=== PATIENT | female | born 1930 | race Caucasian/White ===

== ENCOUNTER 2016-09-30 17:08 | Inpatient (IN) | payer MEDICARE, OTHER ==
[~2016-09-30] VITALS: Ht 160 cm; Wt 71.0 kg
[~2016-09-30 17:08] MED LIST: AMLO5TAB4 PO; CLOP75TA19 PO; CYAN500T46 PO; DONE10TA7 PO; ERGO50007 PO; FERR325T31 PO; LEVO25TA50 PO; MEGE40TA17 PO; MEMA10TA16 PO; METO-429 PO; NEPH PO; OLAN5TAB5 PO; SIMV-39 PO; VALS160T20 PO
[2016-10-01 00:09] LABS: INR 1.14; PROTIME 14.6 Sec (12.2-14.2); PT RATIO 1.1
[2016-10-01 00:13] LABS: CALCIUM 8.9 mg/dl (8.4-10.2); CREATININE 1.33 mg/dl (0.44-1.00)
[2016-10-01 00:21] LABS: BASOPHIL # 0.1 10^3/ul (0.0-0.1); EOSINOPHILS # 0.1 10^3/ul (0.0-0.5); EOSINOPHILS % 1.2 % (0.0-7.0); LYMPHOCYTES # 1.8 10^3/ul (0.8-2.9); LYMPHOCYTES % 21.1 % (15.0-51.0); MEAN CORPUSCULAR HEMOGLOBIN 39.4 pg (29.0-33.0); MEAN CORPUSCULAR HGB CONC 33.6 g/dl (32.0-37.0); MEAN CORPUSCULAR VOLUME 117.2 fl (82.0-101.0); MEAN PLATELET VOLUME 8.2 fl (7.4-10.4); MONOCYTE # 0.7 10^3/ul (0.3-0.9); MONOCYTES % 8.2 % (0.0-11.0); NEUTROPHIL # 5.7 10^3/ul (1.6-7.5); NEUTROPHILS % 68.5 % (39.0-77.0); PLATELET COUNT 285 10^3/UL (140-440); RED BLOOD COUNT 1.79 10^6/ul (4.20-5.40); RED CELL DISTRIBUTION WIDTH 17.5 % (11.5-14.5); UNCORRECTED WBC 8.3 10^3/ul (4.8-10.8); WHITE BLOOD COUNT 8.3 10^3/ul (4.8-10.8)
[2016-10-01 00:22] LABS: CONDITION 1; LH ANALYZER COMMENTS 1
[2016-10-01 00:31] LABS: TROPONIN-I 0.45 ng/ml (0.00-0.12)
[2016-10-01] MEDS ORDERED: SOD CHLORIDE 0.9% 250 ML IV ONE (00:39)
[2016-10-01] MEDS ORDERED: FUROSEMIDE 40 MG INJ IV ONE (01:00)
--- NOTE | 2016-10-01 01:33 | RADRPT ---
PROCEDURE: Chest. CLINICAL INDICATION: Chest pain. TECHNIQUE: Single frontal view of the chest was obtained. COMPARISON: 11/05/2009. FINDINGS: Mediasternotomy wires are present. The cardiac silhouette is enlarged. The aortic arch is calcifie d. There is mild pulmonary venous congestion. There is a small left-sided pleural effusion with un derlying atelectasis/consolidation. There is mild right basilar atelectasis. There is no pneumotho rax. IMPRESSION: Mild cardiomegaly and pulmonary venous congestion. Small left-sided pleural effusion with underlying atelectasis/consolidation. Mild right basilar atelectasis. Aortic atherosclerosis. .Jonah Childers MD, Date Time Electronically viewed and signed by .Jonah Childers MD, MD on 10/01/2016 01:32 .T/
[2016-10-01] MEDS ORDERED: SOD CHLORIDE 0.9% 100 ML ONE (02:02)
[2016-10-01] MEDS ORDERED: IOHEXOL 300MG/ML 150 ML BTL ONE (02:02)
[2016-10-01] MEDS ORDERED: ASPIRIN 81 MG TAB PO ONE (03:00)
--- NOTE | 2016-10-01 03:15 | RADRPT ---
PROCEDURE: CT angiogram chest abdomen and pelvis. CLINICAL INDICATION: Chest and back pain TECHNIQUE: CT angiogram of the chest/abdomen/pelvis was performed utilizing axial images with will nstructions in sagittal and coronal planes after the uneventful intravenous administration of 100 cc Omnipaque 300 contrast. The administered radiation dose is CTDI 16 mGy, DLP 1084 mGy-cm. COMPARISON: No pertinent prior examinations are submitted for comparison. FINDINGS: Aortogram: Atherosclerotic calcifications are noted throughout the aorta and its branches. Some li near filling defect is seen along the distal aortic arch, possibly minimal thrombus or small focal d issection. This is seen on axial images 32 through 34 of series 3. Pulmonary angiogram: The pulmonary arteries are adequately opacified to the level of the segmental pulmonary artery branches. There is minimal respiratory motion artifact. There is no evidence of p ulmonary embolus. Chest: Moderate left and small right pleural effusions are seen with associated atelectasis. Some mucus pl ugging is noted within the lower lobes. There is moderate cardiomegaly. Coronary artery and cardiac valvular calcifications are noted. Abdomen: The liver, spleen, pancreas, kidneys and adrenal glands are unremarkable. Some density is noted with in the gallbladder, likely due to stones. There is no evidence of bowel obstruction. The appendix is normal. Increased stool is noted within the rectum. The rectum is mildly distended, measuring up to 7.8 cm in transverse dimension. There is no intra-abdominal adenopathy of free fluid. There is a moderate-sized hernia within the ventral abdominal wall in the upper abdomen. There is a moderate-sized, lobulated periumbilical hernia which contains fat. Pelvis: There is no evidence of pelvic adenopathy. The uterus and ovaries are without enlargement. The uri nary bladder is unremarkable. There is no pelvic free fluid. Osseous structures: Unremarkable. IMPRESSION: Possible small focal dissection or small thrombus within the distal aortic arch. Bilateral pleural effusions with associated atelectasis. Probable cholelithiasis. Increased stool within the rectum suggestive of constipation and / or fecal impaction. Ventral abdominal and periumbilical hernias containing fat. RPTAT: HIKT .Jesse Lugo MD, MD Date Time Electronically viewed and signed by .Jesse Lugo MD, on 10/01/2016 03:14 .T/
[2016-10-01] MEDS ORDERED: ONDANSETRON 4 MG INJ IV PRN (03:30)
[2016-10-01] MEDS ORDERED: ACETAMINOPHEN 325 MG TAB PO PRN ×2 (03:30→12:30)
[2016-10-01 03:38] VITALS: TEMP 98.1
[2016-10-01] MEDS ORDERED: LABETALOL HCL 20MG INJ IV ONE (05:30)
--- NOTE | 2016-10-01 05:33 | ERA ---
ER Documentation Chief Complaint Date/Time DATE: 10/01/16 TIME: 05:24 Chief Complaint Complains of chest pain and SOB Hx of CAD HPI This is an 85-year-old female presents to the emergency room with her family members for evaluation of chest pain, shortness of breath. The patient's symptoms have been present for approximately 3 days duration, and according to family members they stated they brought the patient in for evaluation although the patient did not want to come in originally. This patient did have a family member who was in the medical field and stated that she could have fluid on her lungs. According to family the patient does have a history of previous coronary artery disease, high blood pressure, dementia, and hyperlipidemia. A detailed history is unobtainable from the patient secondary to her cognitive deficits from her dementia ROS All systems reviewed and are negative except as per history of present illness. Medications Home Meds Reported Medications Olanzapine* (Zyprexa*) 5 Mg Tablet, 5 MG PO DAILY, #30 TAB 03/17/16 Megestrol Acetate* (Megestrol Acetate*) 40 Mg Tablet, 40 MG PO DAILY, TAB 03/17/16 Cyanocobalamin* (Vitamin B12*) 500 Mcg Tab, 500 MCG PO DAILY, TAB 03/17/16 Amlodipine Besylate* (Norvasc*) 5 Mg Tablet, 5 MG PO DAILY, TAB 03/17/16 Donepezil* (Donepezil*) 10 Mg Tablet, 10 MG PO DAILY, #30 TAB 03/17/16 Levothyroxine Sodium* (Levoxyl*) 25 Mcg Tablet, 25 MCG PO BEFORE BREAKFAST, #30 TAB 03/17/16 Metoprolol Tartrate* (Lopressor*) 50 Mg Tab, 50 MG PO DAILY, #60 TAB 03/17/16 Valsartan* (Diovan*) 160 Mg Tablet, 160 MG PO DAILY, TAB 03/17/16 Clopidogrel Bisulfate (Plavix) 75 Mg Tablet, 75 MG PO DAILY 04/16/11 Memantine* (Namenda*) 10 Mg Tablet, 10 MG PO BID 04/16/11 Multivit/Ca Carb/B Cmplx/Fa* (Ludivina-Carmelita*) 1 Tab Tab, 1 TAB PO DAILY 04/16/11 Simvastatin* (Simvastatin*) 80 Mg Tablet, 80 MG PO HS 04/16/11 Ferrous Sulfate (Ferosul) 325 Mg Tablet, 325 MG PO BID 04/16/11 Ergocalciferol (Vitamin D) 50,000 Unit Capsule, 34220 UNIT PO 1 TAB WEEK 04/16/11 Allergies Allergies: Coded Allergies: darbepoetin gomez (Verified Allergy, Unknown, RASH, SOB, 03/17/16) PMhx/Soc Anesthesia Reaction: No Hx Neurological Disorder: No Hx Respiratory Disorders: No Hx Cardiac Disorders: Yes (HTN) Hx Psychiatric Problems: No Hx Miscellaneous Medical Probl: No Hx Alcohol Use: No Hx Substance Use: No Hx Tobacco Use: No Smoking Status: Never smoker Physical Exam Vitals Vital Signs Date Time Temp Pulse Resp B/P Pulse Ox O2 Delivery O2 Flow Rate FiO2 10/01/16 04:16 92 18 167/75 100 Nasal Cannula 2.0 10/01/16 03:50 100 18 137/68 100 Nasal Cannula 2.0 10/01/16 03:38 98.1 94 18 121/73 98 Nasal Cannula 2.0 10/01/16 03:17 98.7 94 18 145/65 97 2.0 10/01/16 02:55 98.7 100 18 130/74 98 Nasal Cannula 2.0 10/01/16 01:24 150 18 123/83 97 Nasal Cannula 2.0 09/30/16 23:49 Nasal Cannula 09/30/16 17:34 99.4 91 20 141/62 97 Physical Exam INITIAL VITAL SIGNS: Reviewed by me GENERAL: The patient is well developed and appropriate for usual state of health in no apparent distress HEENT: Pupils equal, round, and reactive to light. EOMI. There is no scleral icterus. NECK: C-spine is soft and supple, there is no meningismus. There is no cervical lymphadenopathy. LUNGS: Coarse breath sounds bilaterally with rales auscultated in the bilateral lower lobes HEART: Regular rate and rhythm, no murmurs, clicks, rubs or gallops. ABDOMEN: Soft, non-tender, non-distended. There are bowel sounds in all four quadrants. No rebound or guarding. EXTREMITIES: There is no peripheral cyanosis or edema. No focal swelling or erythema. NEUROLOGICAL: The patient moves all four extremities with 5/5 strength. Cranial nerves II - XII are intact. Normal gait. Alert and oriented SKIN: There is no apparent rash or petechiae. HEME/LYMPHATIC: There is no evidence of excessive bruising or lymphedema. PSYCHIATRIC: The patient does not appear anxious or depressed. Result Diagram: 09/30/164 09/30/162333 Results 24 hrs Laboratory Tests Test 09/30/16 23:34 Activated Partial Thromboplast Time 29.0Sec Anion Gap 19 B-Type Natriuretic Peptide 8680PG/ML Basophils # 0.110^3/ul Basophils % 1.0% Blood Morphology Comment Blood Urea Nitrogen 26mg/dl Calcium Level 8.9mg/dl Carbon Dioxide Level 27mmol/L Chloride Level 108mmol/L Creatinine 1.33mg/dl Eosinophils # 0.110^3/ul Eosinophils % 1.2% Glucose Level 130mg/dl Hematocrit 21.0% Hemoglobin 7.0g/dl INR International Normalized Ratio 1.14 Lymphocytes # 1.810^3/ul Lymphocytes % 21.1% Mean Corpuscular Hemoglobin 39.4pg Mean Corpuscular Hemoglobin Concent 33.6g/dl Mean Corpuscular Volume 117.2fl Mean Platelet Volume 8.2fl Monocytes # 0.710^3/ul Monocytes % 8.2% Neutrophils # 5.710^3/ul Neutrophils % 68.5% Nucleated Red Blood Cells # 0.010^3/ul Nucleated Red Blood Cells % 0.0/100WBC Platelet Count 57386^3/UL Potassium Level 4.0mmol/L Prothrombin Time 14.6Sec Prothrombin Time Ratio 1.1 Red Blood Count 1.7910^6/ul Red Cell Distribution Width 17.5% Sodium Level 150mmol/L Troponin I 0.450ng/ml White Blood Count 8.310^3/ul Current Medications Medications (Trade) Dose Ordered Sig/Alexander Route PRN Reason Start Time Stop Time Status Last Admin Dose Admin Sodium Chloride (NS) 250 ml @ 0 mls/hr Q0M ONCE IV 10/01/16 00:39 10/01/16 00:41 DC 10/01/16 00:39 Furosemide 20 mg 20 mg ONCE ONCE IV 10/01/16 01:00 10/01/16 01:01 DC Sodium Chloride (NS) 100 ml @ ud STK-MED ONCE .ROUTE 10/01/16 02:02 10/01/16 02:03 DC 10/01/16 02:29 Iohexol (Omnipaque 300mg/ ml) 150 ml STK-MED ONCE .ROUTE 10/01/16 02:02 10/01/16 02:03 DC 10/01/16 02:29 Aspirin (Aspirin) 324 mg ONCE ONCE PO 10/01/16 03:00 10/01/16 03:01 DC 10/01/16 03:21 Ondansetron HCl (Zofran Inj) 4 mg ER BRIDGE PRN IV NAUSEA AND/OR VOMITING 10/01/16 03:30 10/02/16 03:29 Acetaminophen (Tylenol Tab) 650 mg ER BRIDGE PRN PO MILD PAIN/FEVER 10/01/16 03:30 10/02/16 03:29 Labetalol HCl (Labetalol) 10 mg ONCE ONCE IV 10/01/16 05:30 10/01/16 05:31 Procedures/MDM EKG: Rate/Rhythm: Bifascicular block QRS, ST, T-waves: [No changes consistent w/ acute ischemia] Impression: Bifascicular block EKG: #2 Rate/Rhythm: Sinus tachycardia QRS, ST, T-waves: [No changes consistent w/ acute ischemia] Impression: Sinus tachycardia Chest X-ray 1V Interpreted by me: Soft Tissue: No acute abnormalities Bones: No acute abnormalities Mediastinum/Cardiac Silhouette/Lungs: Pulmonary vascular congestion CTA chest abdomen pelvis: Possible small focal dissection or small thrombus within the distal aortic arch. Bilateral pleural effusions with associated atelectasis. Probable cholelithiasis. Increased stool within the rectum suggestive of constipation and / or fecal impaction. Ventral abdominal and periumbilical hernias containing fat. This 85-year-old female presents to the ER for evaluation of chest pain, shortness of breath, chest discomfort and chest congestion. When I evaluated this patient she did have coarse breath sounds. A cardiac workup was obtained which did reveal an elevated troponin. This patient was given aspirin when I was notified that the troponin was elevated. This patient did have a hemoglobin of 7, and I did think that the elevated troponin could possibly be due to a demand mismatch, and the patient was transfused 1 unit of packed red blood cells. As she was waiting for an admission to the telemetry floor she did increase her heart rate to 150 bpm. This was sustained for approximately 7 minutes. No signs of V. tach. At that time I made the decision to obtain a CT angiogram of the chest abdomen pelvis to rule out any vascular injury. His CTA of the chest does show a focal aortic dissection versus a distal aortic thrombus. I have contacted the radiologist in regards to this read to get a more clear diagnosis however he was unable to definitively distinguish thrombus versus dissection. This patient's heart rate did drop to 89 bpm after the episode of tachycardia. She once again had an increase in her heart rate and was given labetalol. I did contact her vascular surgeon data operations manager, Dr. Cornejo who recommended to obtain an MRA of the chest. An MRI of the chest with and without contrast is ordered, and the results are pending at this time. I have contacted this patient's admitting physician, Dr. Barros, and have updated him on this patient's clinical status. This patient will be upgraded to the intensive care unit at this time pending the MRA with contrast Critical Care: Excluding all billable procedures Time: 48 minutes Treatments/Evaluations: Close monitoring and treatment of unstable vital signs, cardiorespiratory, and neurologic status, while maintaining tight balance of fluid, respiratory, and cardiac interventions. Departure Diagnosis: Primary Impression: Aortic dissection Additional Impressions: Aortic thrombus Non-STEMI (non-ST elevated myocardial infarction) Anemia Renal insufficiency Condition: Stable CAITJALEN SANDERS Oct 01, 2016 05:33
[2016-10-01 07:00] LABS: CK-MB 1.94 ng/ml (0.0-2.4)
[2016-10-01 07:04] LABS: TROPONIN-I 0.392 ng/ml (0.00-0.12)
[2016-10-01] MEDS ORDERED: MEMA14CA PO (08:10)
[2016-10-01] MEDS ORDERED: HYDR-3012 PO (08:10)
--- NOTE | 2016-10-01 10:39 | RADRPT ---
PROCEDURE: MRA Chest without and with contrast. CLINICAL INDICATION: Aortic dissection, pain TECHNIQUE: MRA of the chest was performed. Patient was examined both before and following the unc omplicated intravenous injection of 10 cc of Magnevist IV contrast. Images were reviewed on a [employer] PACS workstation. COMPARISON: CTA, 10/01/2016 FINDINGS: Evaluation is somewhat limited by extensive artifact. No thoracic aortic aneurysm or evidence of ao rtic dissection is identified. Thoracic aortic atherosclerotic plaque is present. Visualized porti ons of the great vessels are patent without evidence of significant stenosis. There is mild cardiom egaly, without pericardial effusion. Moderate bilateral pleural effusions are noted. The patient i s status post sternotomy. No gross evidence of mediastinal, axillary or supraclavicular lymphadenop athy is identified. The visualized osseous structures are grossly unremarkable. IMPRESSION: 1. Limited evaluation secondary to extensive artifact. 2. No thoracic aortic aneurysm or evidence of aortic dissection is identified. Thoracic aortic ath erosclerotic plaque is present. 3. Mild cardiomegaly, without pericardial effusion. 4. Moderate bilateral pleural effusions. RPTAT: TT .Shoaib Tim MD, Date Time Electronically viewed and signed by .Shoaib Tim MD, on 10/01/2016 10:38 .R/
--- NOTE | 2016-10-01 12:18 | PN ---
Date/Time of Note Date/Time of Note DATE: 10/01/16 TIME: 12:09 Assessment/Plan VTE Prophylaxis VTE Prophylaxis Intervention: SCD's Lines/Catheters IV [facility] Saline Lock Exam/Review of Systems Vital Signs Vitals Vital Signs Date Time Temp Pulse Resp B/P Pulse Ox O2 Delivery O2 Flow Rate FiO2 10/01/16 09:20 78 18 125/72 100 10/01/16 08:05 Nasal Cannula 2.0 10/01/16 03:38 98.1 Intake and Output 09/30/16 09/30/16 10/01/16 15:00 23:00 07:00 Intake Total 700 ml Balance 700 ml Results Result Diagram: 09/30/16 2334 09/30/16 2334 Results 24 hrs Laboratory Tests Test 09/30/16 23:34 10/01/16 05:49 Activated Partial Thromboplast Time 29.0 Anion Gap 19 H B-Type Natriuretic Peptide 8680 H Basophils # 0.1 Basophils % 1.0 Blood Morphology Comment Blood Urea Nitrogen 26 H Calcium Level 8.9 Carbon Dioxide Level 27 Chloride Level 108 Creatinine 1.33 H Eosinophils # 0.1 Eosinophils % 1.2 Glucose Level 130 Hematocrit 21.0 L Hemoglobin 7.0 L INR International Normalized Ratio 1.14 Lymphocytes # 1.8 Lymphocytes % 21.1 Mean Corpuscular Hemoglobin 39.4 H Mean Corpuscular Hemoglobin Concent 33.6 Mean Corpuscular Volume 117.2 H Mean Platelet Volume 8.2 Monocytes # 0.7 Monocytes % 8.2 Neutrophils # 5.7 Neutrophils % 68.5 Nucleated Red Blood Cells # 0.0 Nucleated Red Blood Cells % 0.0 Platelet Count 285 # Potassium Level 4.0 Prothrombin Time 14.6 H Prothrombin Time Ratio 1.1 Red Blood Count 1.79 L Red Cell Distribution Width 17.5 #H Sodium Level 150 H Troponin I 0.450 *H 0.392 *H White Blood Count 8.3 Creatine Kinase 104 Creatine Kinase Index 1.9 Creatinine Kinase MB (Mass) 1.94 MARLENE BOWEN M.D. Oct 01, 2016 12:18 Ratio 1.14 Lymphocytes # 1.8 Lymphocytes % 21.1 Mean Corpuscular Hemoglobin 39.4 H Mean Corpuscular Hemoglobin Concent 33.6 Mean Corpuscular Volume 117.2 H Mean Platelet Volume 8.2 Monocytes # 0.7 Monocytes % 8.2 Neutrophils # 5.7 Neutrophils % 68.5 Nucleated Red Blood Cells # 0.0 Nucleated Red Blood Cells % 0.0 Platelet Count 285 # Potassium Level 4.0 Prothrombin Time 14.6 H Prothrombin Time Ratio 1.1 Red Blood Count 1.79 L Red Cell Distribution Width 17.5 #H Sodium Level 150 H Troponin I 0.450 *H 0.392 *H White Blood Count 8.3 Creatine Kinase 104 Creatine Kinase Index 1.9 Creatinine Kinase MB (Mass) 1.94 MARLENE BOWEN M.D. Oct 01, 2016 12:18
[2016-10-01] MEDS ORDERED: DOCUSATE SODIUM 100 MG CAP PO PRN (12:30)
[2016-10-01] MEDS ORDERED: ONDANSETRON 4 MG TAB PO PRN (12:30)
[2016-10-01] MEDS ORDERED: FUROSEMIDE 20 MG INJ IV ONE (12:30)
[2016-10-01] MEDS ORDERED: NACL 0.9% 3 ML SYG IV SCH (12:30)
[2016-10-01] MEDS: FAMOTIDINE 20 MG TAB PO SCH (12:33)
[2016-10-01] MEDS: NITROGLYCERIN 2% 1 GM OINT PKT TD SCH ×3 (12:33→23:13)
[2016-10-01 13:48] LABS: CK-MB 2.02 ng/ml (0.0-2.4)
--- NOTE | 2016-10-01 13:50 | HP ---
Date/Time of Note Date/Time of Note DATE: 10/01/16 TIME: 13:45 Assessment/Plan VTE Prophylaxis VTE Prophylaxis Intervention: SCD's Lines/Catheters IV Catheter Type (from Nrs): Saline Lock HPI/ROS Admit Date/Time Admit Date/Time Hx of Present Illness REGAL ACO HISTORY & PHYSICAL EXAM 1. 85-year-old woman with 3 days of chest congestion and orthopnea. Initial imaging suggested bilateral effusions, left greater than right. She has elevated BNP in the 8000 range, and chest exam was consistent with congestive heart failure. There is mild elevation of the first 2 troponin values, but no acute ischemic changes on EKG. Her troponin elevation may represented demand ischemia, but we will be following for the possibility of acute ischemic event. * Echocardiogram this morning * CT angiogram did not demonstrate perfusion problem, but there was concern initially about the possibility of a aortic arch dissection. MR angiography did not support this conclusion so far. * Topical Nitropaste, along with daily aspirin. Because of her moderate anemia , renal hold off on any anticoagulation. * Transfusion with 2 units of packed red blood cells. * Place under telemetry observation. 2. Hypothyroidism 3. Hypertension 4. Dementia Jozef Izaguirre MD PhD [phone] Subjective Subjective 24 Hr Interval Summary Free Text/Dictation Ms. Matthews is an 85-year-old patient of Dr. Sherron Garza with a history of previous coronary artery bypass surgery 20 years ago who has been feeling short of breath for the last few days. Her son-in-law is a distinguished fish hatchery inspector at [employer] (Braxton Vilchis MD), and his examination yesterday suggested some pulmonary vascular congestion with crackles at the left base of the lungs. She was unable to lie flat, and said that she had not been able to sleep for the last 3 days. She presented in the emergency room yesterday with chest discomfort iva to a pressured sensation in the mid-chest. She had a previous emergency room visit in February 2016 because of anemia, and was found to have a significant macrocytic anemia with an expectation of upper endoscopy follow-up that apparently has not taken place. Other medical history is significant for hypothyroidism, hypertension, dementia, and previous left total knee replacement surgery. Exam/Review of Systems Exam/Review of Systems Vital Signs Vitals Vital Signs Date Time Temp Pulse Resp B/P Pulse Ox O2 Delivery O2 Flow Rate FiO2 10/01/16 09:20 78 18 125/72 100 10/01/16 08:05 Nasal Cannula 2.0 10/01/16 03:38 98.1 Intake and Output 09/30/16 09/30/16 10/01/16 15:00 23:00 07:00 Intake Total 700 ml Balance 700 ml Exam On physical exam, she was alert and social. The HEENT exam indicated normal pupils with anicteric sclerae and no conjunctivitis. She had a regular rhythm with a 2/6 early systolic crescendo murmur that was best heard at the right upper sternal border. The peripheral perfusion was very good. Chest demonstrated some dullness at the bases, with decreased breath sounds at the left base and questionable crackles through the bases on both sides. Abdomen was soft and nontender, mildly to moderately tympanic, with no hepatosplenomegaly. Extremities were normal in appearance, with no lore arthritis, and puffiness but no significant peripheral edema. She had symmetric dorsalis pedis pulses bilaterally. Neurologic exam showed intact cranial nerves , motor and light touch sensation. The toes were downgoing. Orientation was difficult to assess given my limited acquaint her with Urdu. Results Result Diagram: 09/30/16 2334 09/30/16 2334 Results 24 hrs Laboratory Tests Test 09/30/16 23:34 10/01/16 05:49 Activated Partial Thromboplast Time 29.0 Anion Gap 19 H B-Type Natriuretic Peptide 8680 H Basophils # 0.1 Basophils % 1.0 Blood Morphology Comment Blood Urea Nitrogen 26 H Calcium Level 8.9 Carbon Dioxide Level 27 Chloride Level 108 Creatinine 1.33 H Eosinophils # 0.1 Eosinophils % 1.2 Glucose Level 130 Hematocrit 21.0 L Hemoglobin 7.0 L INR International Normalized Ratio 1.14 Lymphocytes # 1.8 Lymphocytes % 21.1 Mean Corpuscular Hemoglobin 39.4 H Mean Corpuscular Hemoglobin Concent 33.6 Mean Corpuscular Volume 117.2 H Mean Platelet Volume 8.2 Monocytes # 0.7 Monocytes % 8.2 Neutrophils # 5.7 Neutrophils % 68.5 Nucleated Red Blood Cells # 0.0 Nucleated Red Blood Cells % 0.0 Platelet Count 285 # Potassium Level 4.0 Prothrombin Time 14.6 H Prothrombin Time Ratio 1.1 Red Blood Count 1.79 L Red Cell Distribution Width 17.5 #H Sodium Level 150 H Troponin I 0.450 *H 0.392 *H White Blood Count 8.3 Creatine Kinase 104 Creatine Kinase Index 1.9 Creatinine Kinase MB (Mass) 1.94 PMH/Family/Social Social History Smoking Status: Never smoker Exam/Review of Systems Vital Signs Vitals Vital Signs Date Time Temp Pulse Resp B/P Pulse Ox O2 Delivery O2 Flow Rate FiO2 10/01/16 09:20 78 18 125/72 100 10/01/16 08:05 Nasal Cannula 2.0 10/01/16 03:38 98.1 Intake and Output 09/30/16 09/30/16 10/01/16 15:00 23:00 07:00 Intake Total 700 ml Balance 700 ml Labs Result Diagram: 09/30/16 2334 09/30/16 2334 Medications Medications Current Medications Nitroglycerin (Nitroglycerin 2% Oint) 0.5 inch Q6 TD Last administered on 10/01at 12:33; Admin Dose 0.5 INCH; Start 10/01/16 at 12:00 Ondansetron HCl (Zofran Tab) 4 mg Q6H PRN PO NAUSEA AND/OR VOMITING; Start at 12:30 Acetaminophen (Tylenol Tab) 650 mg Q6H PRN PO PAIN LEVEL 1-3 OR FEVER; Start 10/01/16 at 12:30 Docusate Sodium (Colace) 100 mg Q12H PRN PO CONSTIPATION; Start 10/01/16 at 12 :30 Famotidine (Pepcid) 20 mg DAILY PO Last administered on 10/01/16at 12:33; Admin Dose 20 MG; Start 10/01/16 at 12:30 MARLENE IZAGUIRRE M.D. Oct 01, 2016 13:50
[2016-10-01 13:52] LABS: TROPONIN-I 0.38 ng/ml (0.00-0.12)
[2016-10-01] MEDS ORDERED: LORAZEPAM 2 MG INJ IV ONE (16:30)
[2016-10-01] MEDS ORDERED: NITROGLYCERIN (SL) 0.4 MG TAB SL PRN (18:30)
[2016-10-01] MEDS ORDERED: METOPROLOL 5 MG INJ IV PRN (18:30)
--- NOTE | 2016-10-01 18:56 | RADRPT ---
Echocardiogram Report Patient Name: ISABEL METZGER Gender: Female Date: 1930 Study Date: 01-Oct-2016 Professional Development Instructor: Ricardo Virk [facility] Location: [facility] Ref. Physician: MARLENE BOWEN Quality: Good Procedures: Transthoracic echocardiogram with complete 2D, M-Mode, and doppler examination. Indications: Chest Pain. Congestive Heart Failure. 2D/M Mode Doppler Measurement Value Normal Ranges Measurement Value Normal Ranges LVIDd 2D 4.9 3.5 - 5.6 cm ARMAAN Vmax 0.8 cm2 LVIDs 2D 3.5 2.1 - 4.1 cm ARMAAN VTI 0.8 cm2 LVPWd 2D 1.0 0.6 - 1.1 cm AV Mean Hema 2.3 m/sec IVSd 2D 0.8 0.6 - 1.1 cm AV Mean PG 25.0 mmHg AoR Diam 2D 2.4 2.0 - 3.7 cm AV Peak Hema 3.3 m/sec EDV 2D 115.4 cm3 AV Peak PG 44.1 mmHg ESV 2D 44.7 cm3 AV VTI 73.7 cm LA Dimen 2D 4.3 2.3 - 4.0 cm LVOT Mean Hema 0.6 m/sec LVOT Diam 1.9 cm LVOT Mean PG 1.6 mmHg LVOT Peak Hema 0.9 m/sec LVOT Peak PG 3.0 mmHg LVOT VTI 19.8 cm MV E Peak Hema 1.2 m/sec MV A Peak Hema 1.3 m/sec MV E/A 0.9 MV PHT 44.4 msec MV Peak Hema 1.7 m/sec MV Peak PG 12.0 mmHg MV Mean Hema 1.1 m/sec MV Mean PG 6.1 mmHg MV Decel Time 230 msec MV Decel [place] 5 MV E/A 0.9 MV PHT 44.4 msec MV VTI 41.5 cm MVA PHT 5.0 cm2 TR Peak Hema 3.6 m/sec TR Peak PG 51.3 mmHg RVSP 54.0 mmHg Findings Left Ventricle: Normal left ventricular cavity size. Mild concentric left ventricular hypertrophy. Mild global left ventricular systolic dysfunction. Ejection fraction is visually estimated at 4045 %. Abnormal Diastolic Function. Right Ventricle: Normal right ventricular size. Left Atrium: There is mild enlargement of left atrium. LA Dimension4.30 cm. Right Atrium: There is mild enlargement of right atrium. Mitral Valve: Moderate mitral leaflet calcification. Moderate mitral annular calcification. Moderate mitral valve regurgitation. Mild to moderate mitral stenosis. Mitral valve Max Velocity 1.94 m/sec. MaxPG 15.00 mmHg. MeanPG 7.80 mmHg. Mitral Valve Area by PHT1.50 cm2. Aortic Valve: Moderate to severe aortic stenosis. Aortic valve Max velocity 3.32 m/sec. Max PG 44.00 mmHg. Mean PG 25.00 mmHg. Aortic valve area 0.80 cm2. Aortic cusps appear moderately calcified. Trace to mild aortic valve regurgitation. Tricuspid Valve: Normal appearance of the tricuspid valve. Estimated peak PA systolic pressure 54 mmHg. There is moderate tricuspid regurgitation. Pericardium: Normal pericardium with no significant pericardial effusion. Aorta: Normal aortic root. IVC: Normal size and normal respiratory collapse consistent with normal right atrial pressure. Conclusions 1.Normal left ventricular cavity size. Mild concentric left ventricular hypertrophy. Mild global left ventricular systolic dysfunction. Ejection fraction is visually estimated at 40-45 %. Abnormal Diastolic Function. 2.There is mild to moderate enlargement of left atrium. LA Dimension4.30 cm. 3.There is mild enlargement of right atrium. 4.Mild to moderate mitral stenosis. MeanPG 7.80 mmHg. Mitral Valve Area by PHT1.50 cm2. 5.Moderate to severe aortic stenosis. Mean PG 25.00 mmHg. Aortic valve area 0.80 cm2.Trace to mild aortic valve regurgitation. 6.Normal appearance of the tricuspid valve. Estimated peak PA systolic pressure 54 mmHg. There is moderate tricuspid regurgitation. Electronically Signed By: Prosper Mckeon 01-Oct-2016 18:55:59 -0800 Patient Name: ISABEL METZGER Study Date: 01-Oct-2016 [id number]
[2016-10-01 21:02] VITALS: BP 119/58; RESP 18
[2016-10-01 21:20] VITALS: Ht 160 cm; Wt 71.0 kg
[2016-10-01] MEDS: METOPROLOL 25 MG TAB PO SCH (23:12)
[2016-10-01] MEDS: LORAZEPAM 2 MG INJ IV PRN (23:14)
[2016-10-02] VITALS (12 sets, daily range): BP systolic 117–147; BP diastolic 52–80; PULSE 76–103; RESP 18–20
--- NOTE | 2016-10-02 05:16 | CONS ---
DATE OF ADMISSION: 10/01/2016 DATE OF CONSULTATION: 10/01/2016 CARDIOLOGY CONSULTATION REASON FOR CONSULTATION: Positive troponin, cardiac arrhythmia, possible congestive heart failure. REQUESTING PHYSICIAN: Julian Izaguirre M.D. HISTORY OF PRESENT ILLNESS: Ms. Matthews is an 85-year-old female with a history of coronary artery disease, status post coronary bypass grafting in 1995, hypertension, dementia, hypothyroidism, dysli pidemia who initially presented with shortness of breath, symptoms consistent with orthopnea and pos sible chest pain. Upon arrival in the emergency department, temperature was 99.4, blood pressure 14 , pulse documented at 91 and then shortly after that increased to 150s, saturating 97%. Patient 's labs were notable for a sodium of 150, potassium 4.0, creatinine of 1.33, BUN of 26. Troponin of 0.450. BNP of 8680. INR of 1.1. White blood cell count 8.3, hemoglobin 7, platelet count of 285 with an MCV of 117. The patient underwent a chest x-ray revealing mild cardiomegaly, pulmonary veno us congestion, small left-sided pleural effusion with underlying atelectasis, consolidation, mild ri ght basilar atelectasis. In addition, she then underwent a CT/CTA revealing possible small focal di ssection or small thrombus within the distal aortic arch, bilateral pleural effusion, associated ate lectasis, probable cholelithiasis, ventral abdominal and periumbilical hernias containing fat. The p atient then underwent a chest MRI revealing no thoracic aortic aneurysm of evidence of aortic dissec tion identified. Aortic atherosclerotic plaquing is present. Moderate bilateral pleural effusions. The patient's electrocardiogram initially revealed normal sinus rhythm at a rate of 93 with left a xis deviation, right bundle branch block, secondary repolarization abnormalities, and left anterior fascicular block. Patient then had a followup EKG later in the emergency stay revealing a wide comp corrina rhythm at a rate of 150 with the same right bundle branch block morphology, likely consistent wi th paroxysmal atrial flutter. The patient subsequently has been treated with Lasix 20 mg IV x1, lab etalol 10 mg IV x1, aspirin 325 mg, and now awaits admit to the floor. PAST MEDICAL HISTORY: As above in HPI. MEDICATIONS PRIOR TO ADMIT: 1. Megace. 2. Aricept 10 mg daily. 3. Plavix 75 mg daily. 4. Ferrous sulfate 325 mg p.o. b.i.d. 5. Norvasc 5 mg daily. 6. Lopressor 50 mg daily. 7. Simvastatin 80 mg at bedtime. 8. Diovan 160 mg daily. 9. Hydroxychloroquine. 10. Namenda 10 mg p.o. b.i.d. 11. Zyprexa. 12. Vitamin B12. 13. Vitamin D. 14. Ludivina-Carmelita. ALLERGIES: EPOGEN. SOCIAL HISTORY: No tobacco, ETOH or illicit drug use. FAMILY HISTORY: No history of sudden cardiac or early CAD. REVIEW OF SYSTEMS: As above in HPI. CONSTITUTIONAL: No fevers, chills. PULMONARY: Shortness of breath. CARDIOVASCULAR: Shortness of breath, possible chest pain. Congestive heart failure. GASTROINTESTINAL: No vomiting. GENITOURINARY: No hematuria. MUSCULOSKELETAL: Degenerative joint disease. PSYCHIATRIC: Possible anxiety. NEUROLOGIC: Dementia. PHYSICAL EXAMINATION: VITAL SIGNS: Temperature 98.1, blood pressure most recently of 121/73, pulse 94, respiratory rate 1 8, saturating 98% on 2 liters. GENERAL: The patient is sleeping but arousable. NECK: JVP approximately 9 to 10 cm water. CHEST: Bibasilar crackles. HEART: Regular rate and rhythm. Normal S1, S2, a I/ systolic murmur, nondisplaced PMI. ABDOMEN: Positive bowel sounds, soft. EXTREMITIES: Trace edema, 1+ pulses bilaterally, posterior tibial. LABORATORY DATA: As above in HPI with since admit, patient has been having troponins trending and s lowly trended down from a peak of 0.450 down to 0.380. ECG: As above in HPI. No further electrocardiograms for my review at this time. IMAGING STUDIES: As above in HPI. No further imaging studies for my review at this time. IMPRESSION: 1. Congestive heart failure exacerbation, question systolic versus diastolic by most recent echo in 2010, would have been diastolic ____. We will reassess, acute. 2. Positive troponin, assess significance in the setting of renal failure and tachyarrhythmia, poss ible demand event. Last ____stress here negative in 2010. 3. Wide complex tachycardia, likely could be consistent with SVT with baseline bundle branch block and given rate, most consistent with probable paroxysmal atrial flutter. 4. Hypertension. 5. Dyslipidemia. 6. Shortness of breath secondary to #1. 7. Renal failure. 8. Hypernatremia. 9. Anemia. RECOMMENDATIONS: 1. At this time, I would admit patient to telemetry monitoring to follow rhythm and rate control cl osely. 2. Would give patient gentle Lasix diuresis, following strict I's and O's to grade diuresis closely . 3. Will consider transfusion of packed RBCs to increase oxygen carrying capacity in the setting of positive troponins. 4. Resume the patient's baseline beta marian and patient's Norvasc at this time and we will hold o n the patient's Diovan in the setting of renal failure. 5. Resume the patient's baseline Plavix and will consider additional aspirin, following hemoglobin closely. 6. Check a 2D echo to reassess patient's ejection fraction, wall motion, and rule out any major smitha ve abnormalities. 7. Check a fasting lipid panel for general risk stratification and adjust the patient's statin ther apy as necessary and we will decrease the patient's baseline statin therapies on high doses at this time until the lipid panel returns. 8. We will additionally continue to check serial EKGs to assess for any significant ongoing changes and we will continue to trend the patient's cardiac enzymes to assess for any significant ongoing c ardiac damage with possible consideration for stress testing to assess significance of positive trop onins in setting of renal failure. Thank you for allowing me to take part in the care of this patient. I will continue to follow along very closely with you. Further recommendations will be made as the patient progresses through her inpatient hospital clinical course. Dictated By: PRISCILA SEGURA/MARILU Conf#: [id number] DID#: [id number] CC: ____ Dmitriy;*EndCC*
[2016-10-02] MEDS: NITROGLYCERIN 2% 1 GM OINT PKT TD SCH ×3 (05:39→17:50)
[2016-10-02 06:29] LABS: BASOPHILS % 0.6 % (0.0-2.0); EOSINOPHILS # 0.2 10^3/ul (0.0-0.5); EOSINOPHILS % 3.1 % (0.0-7.0); HEMATOCRIT 24.4 % (37.0-47.0); HEMOGLOBIN 8.4 g/dl (12.0-16.0); LYMPHOCYTES # 1.4 10^3/ul (0.8-2.9); LYMPHOCYTES % 18.9 % (15.0-51.0); MEAN CORPUSCULAR HEMOGLOBIN 38.2 pg (29.0-33.0); MEAN CORPUSCULAR HGB CONC 34.3 g/dl (32.0-37.0); MEAN CORPUSCULAR VOLUME 111.2 fl (82.0-101.0); MEAN PLATELET VOLUME 8.1 fl (7.4-10.4); MONOCYTE # 0.6 10^3/ul (0.3-0.9); MONOCYTES % 7.5 % (0.0-11.0); NEUTROPHIL # 5.4 10^3/ul (1.6-7.5); NEUTROPHILS % 69.9 % (39.0-77.0); PLATELET COUNT 263 10^3/UL (140-440); RED BLOOD COUNT 2.19 10^6/ul (4.20-5.40); RED CELL DISTRIBUTION WIDTH 23.9 % (11.5-14.5); UNCORRECTED WBC 7.7 10^3/ul (4.8-10.8); WHITE BLOOD COUNT 7.7 10^3/ul (4.8-10.8)
[2016-10-02 06:34] LABS: CONDITION 1; LH ANALYZER COMMENTS 1; POTASSIUM 4.4 mmol/L (3.5-5.1); SUSPECT 1
[2016-10-02 06:36] LABS: CREATININE 1.18 mg/dl (0.44-1.00)
[2016-10-02 06:37] LABS: CALCIUM 8.6 mg/dl (8.4-10.2)
[2016-10-02 06:49] LABS: CK-MB 1.06 ng/ml (0.0-2.4)
[2016-10-02 07:05] LABS: CHOL/HDL RATIO 3.2 RATIO
[2016-10-02 07:21] LABS: TROPONIN-I 0.303 ng/ml (0.00-0.12)
[2016-10-02] MEDS: METOPROLOL 25 MG TAB PO SCH ×2 (08:30→21:53)
[2016-10-02] MEDS: FAMOTIDINE 20 MG TAB PO SCH (08:30)
[2016-10-02] MEDS: ASPIRIN (EC) 81 MG TAB PO SCH (08:30)
--- NOTE | 2016-10-02 11:15 | CONS ---
Date/Time of Note Date/Time of Note DATE: 10/02/16 TIME: 11:08 Assessment/Plan Assessment/Plan Chief Complaint/Hosp Course IMPRESSION: 1. Congestive heart failure exacerbation, question systolic versus diastolic by most recent echo in 2010-EF 40-45%/mod-sev by echo this admit 2. Positive troponin, assess significance in the setting of renal failure and tachyarrhythmia, possible demand event. Last ____stress here negative in 2010. 3. Wide complex tachycardia, likely could be consistent with SVT with baseline bundle branch block and given rate, most consistent with probable paroxysmal atrial flutter. 4. Hypertension. 5. Dyslipidemia. 6. Shortness of breath secondary to #1. 7. Renal failure. 8. Hypernatremia. 9. Anemia. Recc: -Tele -serial ecg's -trend cardiac enzymes -Continue BB -Continue asa -Will hold on plavix at this time given anemia -Consider transfusion of PRBC's -add hydralazine afterload reduction in lieu of ACEI at this time given renal failure/insuff -Gentle lasix diuresis -Follow volume status closely Problems: Consultation Date/Type/Reason Admit Date/Time Oct 01, 2016 at 03:18 Initial Consult Date 10/02/2016 Type of Consultation: Cardiology Reason for Consultation CHF Referring Provider: MARLENE BOWEN M.D. Exam/Review of Systems Vital Signs Vitals Vital Signs Date Time Temp Pulse Resp B/P Pulse Ox O2 Delivery O2 Flow Rate FiO2 10/02/16 08:15 98.5 119 20 147/80 99 10/02/16 08:00 Nasal Cannula 3.0 Intake and Output 10/01/16 10/01/16 10/02/16 15:00 23:00 07:00 Intake Total 120 ml Output Total 300 ml Balance -180 ml Exam Review of Systems: CONSTITUTIONAL: No fevers, chills. PULMONARY: No sob CARDIOVASCULAR: No obvious chest pain/palpitations GASTROINTESTINAL: No nausea/vomiting. GENITOURINARY: No hematuria/dysuria. MUSCULOSKELETAL: No obvious myagias/arthalgias. PSYCHIATRIC: The patient denies depression. NEUROLOGIC: lethargic Constitutional: alert Psych: no complaints Head: normocephalic ENMT: mucosa pink and moist Neck: jvd (9-10 cm water), supple Respiratory: diminished breath sounds (at bases/B) Cardiovascular: regular rate and rhythm Gastrointestinal: non-tender, soft Musculoskeletal: muscle tone (normal) Extremities: pitting pedal edema (trace/B) Neurological: lethargic Results Result Diagram: 10/02/16 0550 10/02/16 0550 Results 24 hrs Laboratory Tests Test 10/01/16 13:10 10/02/16 05:50 Creatine Kinase 95 95 Creatine Kinase Index 2.1 1.1 Creatinine Kinase MB (Mass) 2.02 1.06 Thyroid Stimulating Hormone (TSH) 6.720 H Troponin I 0.380 *H 0.303 *H Anion Gap 16 Basophils # 0.0 Basophils % 0.6 Blood Morphology Comment Blood Urea Nitrogen 26 H Calcium Level 8.6 Carbon Dioxide Level 30 Chloride Level 109 Cholesterol Level 144 Cholesterol/HDL Ratio 3.2 Creatinine 1.18 H Eosinophils # 0.2 Eosinophils % 3.1 Glucose Level 99 HDL Cholesterol 44 Hematocrit 24.4 L Hemoglobin 8.4 L LDL Cholesterol, Calculated 79 Lymphocytes # 1.4 Lymphocytes % 18.9 Mean Corpuscular Hemoglobin 38.2 H Mean Corpuscular Hemoglobin Concent 34.3 Mean Corpuscular Volume 111.2 H Mean Platelet Volume 8.1 Monocytes # 0.6 Monocytes % 7.5 Neutrophils # 5.4 Neutrophils % 69.9 Nucleated Red Blood Cells # 0.0 Nucleated Red Blood Cells % 0.0 Platelet Count 263 Potassium Level 4.4 Red Blood Count 2.19 #L Red Cell Distribution Width 23.9 #H Sodium Level 151 H Triglycerides Level 107 White Blood Count 7.7 Medications Medications Current Medications Nitroglycerin (Nitroglycerin 2% Oint) 0.5 inch Q6 TD Last administered on 10/02at 05:39; Admin Dose 0.5 INCH; Start 10/01/16 at 12:00 Ondansetron HCl (Zofran Tab) 4 mg Q6H PRN PO NAUSEA AND/OR VOMITING; Start at 12:30 Acetaminophen (Tylenol Tab) 650 mg Q6H PRN PO PAIN LEVEL 1-3 OR FEVER; Start 10/01/16 at 12:30 Docusate Sodium (Colace) 100 mg Q12H PRN PO CONSTIPATION; Start 10/01/16 at 12 :30 Famotidine (Pepcid) 20 mg DAILY PO Last administered on 10/02/16at 08:30; Admin Dose 20 MG; Start 10/01/16 at 12:30 Aspirin (Halfprin) 81 mg DAILY PO Last administered on 10/02/16 08:30; Admin Dose 81 MG; Start 10/02/16 at 09:00 Metoprolol Tartrate (Lopressor) 25 mg BID PO Last administered on 10/02/16 08 :30; Admin Dose 25 MG; Start 10/01/16 at 21:00 Metoprolol Tartrate (Lopressor) 5 mg Q4 PRN IV HR>110 Hold SBP<100; Start at 18:30 Nitroglycerin (Nitroglycerin (Sl Tab) 0.4 Mg) 1 tab Q5M PRN SL ANGINA; Start 10/01/16 at 18:30 Lorazepam (Ativan) 0.5 mg Q8H PRN IV AGITATION/ANXIETY Last administered on at 23:14; Admin Dose 0.5 MG; Start 10/01/16 at 23:00 PRISCILA THORNTON Oct 02, 2016 11:15
--- NOTE | 2016-10-02 12:36 | RADRPT ---
Vent Rate: 85 bpm RR Interval: 0 msec MA Interval: 144 msec QRS Duration: 112 msec QT Interval: 400 msec QTC Interval: 476 msec P-R-T [place]: 0 - -57 - 124 degrees Sinus rhythm with blocked premature atrial complexes Left axis deviation Nonspecific ST and T wave abnormality Prolonged QT Abnormal ECG Electronically Signed By: Prosper Mckeon [id number]
[2016-10-02] MEDS: LORAZEPAM 2 MG INJ IV PRN (14:44)
[2016-10-02] MEDS ORDERED: LORAZEPAM 2 MG INJ IV ONE ×2 (17:30→21:30)
--- NOTE | 2016-10-02 18:04 | CONS ---
DATE OF ADMISSION: 10/01/2016 DATE OF CONSULTATION: REASON FOR CONSULTATION: Possible aortic dissection. HISTORY OF PRESENT ILLNESS: This is an 85-year-old male who was admitted because of chest pain, con gestion, orthopnea. Initial imaging showed bilateral pleural effusion, either a thrombus or a possi ble aortic dissection at the arch, which showed up on the CT angiogram of the chest. This was seen at the distal arch. This was followed up with an MRA, which showed no evidence of any thoracic aneu rysm or dissection; however, the patient had atherosclerotic plaque disease. The patient is now loreto ng treated for congestive heart failure. The patient also has a history of aortic stenosis wi th ejection fraction of 45%, [id number] mitral regurgitation, jsrplryc-ab-lwrbtv aortic regurg itation, with a mean gradient of 25 mmHg. Valve area of 0.8 cm2. PAST MEDICAL HISTORY: Significant for hypertension, hyperlipidemia, hypothyroidism. MEDICATIONS Include: 1. Megace. 2. Amlodipine. 3. Levothyroxine. 4. Metoprolol. 5. Plavix. 6. Multivitamin. 7. Simvastatin. PHYSICAL EXAMINATION VITAL SIGNS: Blood pressure is 147/80, pulse is 119, respiration is 20, saturations is 99% on 3 L o f oxygen, temperature is 98.5. HEENT: Normocephalic, atraumatic. PERRLA. NECK: Supple. No JVD. No carotid bruits. CARDIOVASCULAR: Normal S1, S2, with systolic murmur. LUNGS: Diminished breath sounds at the bases. ABDOMEN: Soft. EXTREMITIES: Warm. LABORATORY VALUES: Hemoglobin 8.4, white count 7.7, platelet count 263. INR 1.14 and a creatinine of 1.18. IMPRESSION 1. Congestive heart failure. 2. Aortic stenosis. RECOMMENDATIONS: We will continue treatment for stated CHF. We will discuss with the referring trevor bonilla. Dictated By: WINDY MAGUIRE/MARILU Conf#: [id number] DID#: [id number]
[2016-10-02] MEDS: OLANZAPINE 5 MG TAB PO SCH (21:53)
[2016-10-03] VITALS (13 sets, daily range): BP systolic 83–127; BP diastolic 41–76; PULSE 73–150; RESP 16–20
[2016-10-03] MEDS: NITROGLYCERIN 2% 1 GM OINT PKT TD SCH ×4 (00:55→17:26)
[2016-10-03 06:49] LABS: BASOPHIL # 0.1 10^3/ul (0.0-0.1); EOSINOPHILS # 0.3 10^3/ul (0.0-0.5); EOSINOPHILS % 3.4 % (0.0-7.0); HEMATOCRIT 25.9 % (37.0-47.0); HEMOGLOBIN 8.7 g/dl (12.0-16.0); LYMPHOCYTES # 1.9 10^3/ul (0.8-2.9); LYMPHOCYTES % 24.7 % (15.0-51.0); MEAN CORPUSCULAR HEMOGLOBIN 37.7 pg (29.0-33.0); MEAN CORPUSCULAR HGB CONC 33.8 g/dl (32.0-37.0); MEAN CORPUSCULAR VOLUME 111.5 fl (82.0-101.0); MEAN PLATELET VOLUME 8.1 fl (7.4-10.4); MONOCYTE # 0.7 10^3/ul (0.3-0.9); MONOCYTES % 8.8 % (0.0-11.0); NEUTROPHIL # 4.7 10^3/ul (1.6-7.5); NEUTROPHILS % 62.1 % (39.0-77.0); PLATELET COUNT 246 10^3/UL (140-440); RED BLOOD COUNT 2.32 10^6/ul (4.20-5.40); RED CELL DISTRIBUTION WIDTH 22.5 % (11.5-14.5); UNCORRECTED WBC 7.6 10^3/ul (4.8-10.8); WHITE BLOOD COUNT 7.6 10^3/ul (4.8-10.8)
[2016-10-03 07:07] LABS: CONDITION 1; LH ANALYZER COMMENTS 1
[2016-10-03 07:09] LABS: POTASSIUM 4.3 mmol/L (3.5-5.1)
[2016-10-03 07:11] LABS: CREATININE 1.2 mg/dl (0.44-1.00)
[2016-10-03 07:12] LABS: CALCIUM 8.8 mg/dl (8.4-10.2)
[2016-10-03] MEDS: FAMOTIDINE 20 MG TAB PO SCH (08:38)
[2016-10-03] MEDS: ASPIRIN (EC) 81 MG TAB PO SCH (08:39)
[2016-10-03] MEDS: METOPROLOL 25 MG TAB PO SCH ×2 (08:39→22:10)
[2016-10-03] MEDS: FUROSEMIDE 20 MG INJ IV SCH (08:39)
[2016-10-03] MEDS: OLANZAPINE 5 MG TAB PO SCH ×2 (08:39→22:09)
[2016-10-03] MEDS ORDERED: MEMANTINE 10 MG TAB PO SCH (09:00)
[2016-10-03] MEDS: LORAZEPAM 2 MG INJ IV PRN (11:48)
--- NOTE | 2016-10-03 12:13 | CONS ---
Date/Time of Note Date/Time of Note DATE: 10/03/16 TIME: 12:09 Assessment/Plan Assessment/Plan Chief Complaint/Hosp Course IMPRESSION: 1. Congestive heart failure exacerbation, question systolic versus diastolic by most recent echo in 2010-EF 40-45%/mod-sev by echo this admit-improving volume status 2. Positive troponin, assess significance in the setting of renal failure and tachyarrhythmia, possible demand event. Last stress here negative in 2010.lexiscan 3. Wide complex tachycardia, likely could be consistent with SVT with baseline bundle branch block and given rate, most consistent with probable paroxysmal atrial flutter.-had again overnight 4. Hypertension. 5. Dyslipidemia. 6. Shortness of breath secondary to #1. 7. Renal failure. 8. Hypernatremia. 9. Anemia. Recc: -Tele -serial ecg's -trend cardiac enzymes -Continue BB -Continue asa -start PO amio in attempt to maintain SR as PAFL may have been etiology of demand cardiac event/nstemi -Will hold on plavix at this time given anemia -Consider transfusion of PRBC's -Continue hydralazine afterload reduction in lieu of ACEI at this time given renal failure/insuff -Gentle lasix diuresis -Follow volume status closely -Follow MS closely -Consider am lexiscan to assess signifuicance of positive tropnins Problems: Consultation Date/Type/Reason Admit Date/Time Oct 01, 2016 at 03:18 Initial Consult Date 10/02/2016 Type of Consultation: Cardiology Reason for Consultation Nstemi/CHF Referring Provider: MARLENE BOWEN M.D. Exam/Review of Systems Vital Signs Vitals Vital Signs Date Time Temp Pulse Resp B/P Pulse Ox O2 Delivery O2 Flow Rate FiO2 10/03/16 11:19 97.6 84 20 122/60 97 10/03/16 08:00 Nasal Cannula 3.0 Intake and Output 10/02/16 10/02/16 10/03/16 15:00 23:00 07:00 Intake Total 310 ml Output Total 300 ml Balance 10 ml Exam >Review of Systems: CONSTITUTIONAL: No fevers, chills. PULMONARY: No sob CARDIOVASCULAR: No chest pain/palpitations GASTROINTESTINAL: No nausea/vomiting. GENITOURINARY: No hematuria/dysuria. MUSCULOSKELETAL: No myagias/arthalgias. PSYCHIATRIC: The patient denies depression. NEUROLOGIC: confusion Constitutional: alert Psych: confusion Head: normocephalic ENMT: mucosa pink and moist Neck: jvd (9 cm water), supple Respiratory: diminished breath sounds (at bases/B) Cardiovascular: regular rate and rhythm Gastrointestinal: non-tender, soft Musculoskeletal: muscle tone (normal) Extremities: edema (none) Neurological: confused Results Result Diagram: 10/03/16 0609 10/03/16 0600 Results 24 hrs Laboratory Tests Test 10/03/16 06:00 10/03/16 06:09 Anion Gap 16 Blood Urea Nitrogen 30 H Calcium Level 8.8 Carbon Dioxide Level 29 Chloride Level 109 Creatinine 1.20 H Glucose Level 110 Potassium Level 4.3 Sodium Level 150 H Basophils # 0.1 Basophils % 1.0 Blood Morphology Comment Eosinophils # 0.3 Eosinophils % 3.4 Hematocrit 25.9 L Hemoglobin 8.7 L Lymphocytes # 1.9 Lymphocytes % 24.7 Mean Corpuscular Hemoglobin 37.7 H Mean Corpuscular Hemoglobin Concent 33.8 Mean Corpuscular Volume 111.5 H Mean Platelet Volume 8.1 Monocytes # 0.7 Monocytes % 8.8 Neutrophils # 4.7 Neutrophils % 62.1 Nucleated Red Blood Cells # 0.0 Nucleated Red Blood Cells % 0.0 Platelet Count 246 Red Blood Count 2.32 L Red Cell Distribution Width 22.5 H White Blood Count 7.6 Medications Medications Current Medications Nitroglycerin (Nitroglycerin 2% Oint) 0.5 inch Q6 TD Last administered on 11:49; Admin Dose 0.5 INCH; Start 10/01/16 at 12:00 Ondansetron HCl (Zofran Tab) 4 mg Q6H PRN PO NAUSEA AND/OR VOMITING; Start at 12:30 Acetaminophen (Tylenol Tab) 650 mg Q6H PRN PO PAIN LEVEL 1-3 OR FEVER; Start 10/01/16 at 12:30 Docusate Sodium (Colace) 100 mg Q12H PRN PO CONSTIPATION; Start 10/01/16 at 12 :30 Famotidine (Pepcid) 20 mg DAILY PO Last administered on 10/03/16 08:38; Admin Dose 20 MG; Start 10/01/16 at 12:30 Aspirin (Halfprin) 81 mg DAILY PO Last administered on 10/03/16 08:39; Admin Dose 81 MG; Start 10/02/16 at 09:00 Metoprolol Tartrate (Lopressor) 25 mg BID PO Last administered on 10/03/16 08: 39; Admin Dose 25 MG; Start 10/01/16 at 21:00 Metoprolol Tartrate (Lopressor) 5 mg Q4 PRN IV HR>110 Hold SBP<100; Start at 18:30 Nitroglycerin (Nitroglycerin (Sl Tab) 0.4 Mg) 1 tab Q5M PRN SL ANGINA; Start 10/01/16 at 18:30 Lorazepam (Ativan) 0.5 mg Q8H PRN IV AGITATION/ANXIETY Last administered on 10/03 11:48; Admin Dose 0.5 MG; Start 10/01/16 at 23:00 Furosemide (Lasix) 20 mg DAILY IV Last administered on 10/03/16 08:39; Admin Dose 20 MG; Start 10/03/16 at 09:00 Hydralazine HCl (Apresoline) 10 mg Q8 PO Last administered on 10/03/16 07:30; Admin Dose 10 MG; Start 10/02/16 at 14:00 Olanzapine (Zyprexa) 5 mg BID PO Last administered on 10/03/16 08:39; Admin Dose 5 MG; Start 10/02/16 at 21:30 Memantine (Namenda) 5 mg BID PO ; Start 10/03/16 at 10:00 PRISCILA THORNTON Oct 03, 2016 12:13
[2016-10-03] MEDS: MEMANTINE 5 MG TAB PO SCH ×2 (15:18→22:10)
--- NOTE | 2016-10-03 16:44 | PN ---
Date/Time of Note Date/Time of Note DATE: 10/03/16 TIME: 16:38 Assessment/Plan VTE Prophylaxis VTE Prophylaxis Intervention: LMWH Lines/Catheters IV Catheter Type (from Nrs): Saline Lock Urinary Cath still in place: Yes Reason Cath still needed: pres ulcer contaminated by urine Assessment/Plan Assessment/Plan 1. 85-year-old woman with 3 days of chest congestion and orthopnea. Initial imaging suggested bilateral effusions, left greater than right. She has elevated BNP in the 8000 range, and chest exam was consistent with congestive heart failure. She is diuresing well, and I discussed the case in detail with Dr. Mckeon. There is mild elevation of the first 2 troponin values, but no acute ischemic changes on EKG. Her troponin elevation may represented demand ischemia, but we will be following for the possibility of acute ischemic event. * CT angiogram did not demonstrate perfusion problem, but there was concern initially about the possibility of a aortic arch dissection. MR angiography did not support this conclusion so far. * Topical Nitropaste, along with daily aspirin. Because of her moderate anemia , renal hold off on any anticoagulation. * will d/w Dr. Mckeon further plan of care. 2. Hypothyroidism: Check TSH and free T4 3. Hypertension 4. Dementia Subjective 24 Hr Interval Summary Free Text/Dictation Case d/w family. No significant complaints today other than agitation last night. Psych meds restarted. Constitutional: no complaints Eyes: no complaints Exam/Review of Systems Vital Signs Vitals Vital Signs Date Time Temp Pulse Resp B/P Pulse Ox O2 Delivery O2 Flow Rate FiO2 10/03/16 16:26 142 10/03/16 15:50 97.7 20 95/42 97 10/03/16 08:00 Nasal Cannula 3.0 Intake and Output 10/02/16 10/02/16 10/03/16 15:00 23:00 07:00 Intake Total 310 ml Output Total 300 ml Balance 10 ml Exam Constitutional: alert Psych: no complaints Head: normocephalic Eyes: nl conjunctiva ENMT: nl external ears & nose Neck: supple Respiratory: clear to auscultation Cardiovascular: regular rate and rhythm Gastrointestinal: soft Results Result Diagram: 10/03/16 0609 10/03/16 0600 Results 24 hrs Laboratory Tests Test 10/03/16 06:00 10/03/16 06:09 Anion Gap 16 Blood Urea Nitrogen 30 H Calcium Level 8.8 Carbon Dioxide Level 29 Chloride Level 109 Creatinine 1.20 H Glucose Level 110 Potassium Level 4.3 Sodium Level 150 H Basophils # 0.1 Basophils % 1.0 Blood Morphology Comment Eosinophils # 0.3 Eosinophils % 3.4 Hematocrit 25.9 L Hemoglobin 8.7 L Lymphocytes # 1.9 Lymphocytes % 24.7 Mean Corpuscular Hemoglobin 37.7 H Mean Corpuscular Hemoglobin Concent 33.8 Mean Corpuscular Volume 111.5 H Mean Platelet Volume 8.1 Monocytes # 0.7 Monocytes % 8.8 Neutrophils # 4.7 Neutrophils % 62.1 Nucleated Red Blood Cells # 0.0 Nucleated Red Blood Cells % 0.0 Platelet Count 246 Red Blood Count 2.32 L Red Cell Distribution Width 22.5 H White Blood Count 7.6 Medications Medications Current Medications Nitroglycerin (Nitroglycerin 2% Oint) 0.5 inch Q6 TD Last administered on 11:49; Admin Dose 0.5 INCH; Start 10/01/16 at 12:00 Ondansetron HCl (Zofran Tab) 4 mg Q6H PRN PO NAUSEA AND/OR VOMITING; Start at 12:30 Acetaminophen (Tylenol Tab) 650 mg Q6H PRN PO PAIN LEVEL 1-3 OR FEVER; Start 10/01/16 at 12:30 Docusate Sodium (Colace) 100 mg Q12H PRN PO CONSTIPATION; Start 10/01/16 at 12 :30 Famotidine (Pepcid) 20 mg DAILY PO Last administered on 10/03/16 08:38; Admin Dose 20 MG; Start 10/01/16 at 12:30 Aspirin (Halfprin) 81 mg DAILY PO Last administered on 10/03/16 08:39; Admin Dose 81 MG; Start 10/02/16 at 09:00 Metoprolol Tartrate (Lopressor) 25 mg BID PO Last administered on 10/03/16 08: 39; Admin Dose 25 MG; Start 10/01/16 at 21:00 Metoprolol Tartrate (Lopressor) 5 mg Q4 PRN IV HR>110 Hold SBP<100; Start at 18:30 Nitroglycerin (Nitroglycerin (Sl Tab) 0.4 Mg) 1 tab Q5M PRN SL ANGINA; Start 10/01/16 at 18:30 Lorazepam (Ativan) 0.5 mg Q8H PRN IV AGITATION/ANXIETY Last administered on 10/03 11:48; Admin Dose 0.5 MG; Start 10/01/16 at 23:00 Furosemide (Lasix) 20 mg DAILY IV Last administered on 10/03/16 08:39; Admin Dose 20 MG; Start 10/03/16 at 09:00 Hydralazine HCl (Apresoline) 10 mg Q8 PO Last administered on 10/03/16 15:18; Admin Dose 10 MG; Start 10/02/16 at 14:00 Olanzapine (Zyprexa) 5 mg BID PO Last administered on 10/03/16 08:39; Admin Dose 5 MG; Start 10/02/16 at 21:30 Memantine (Namenda) 5 mg BID PO Last administered on 10/03/16 15:18; Admin Dose 5 MG; Start 10/03/16 at 10:00 ALEX REDMAN MD Oct 03, 2016 16:44
--- NOTE | 2016-10-03 19:58 | PN ---
Date/Time of Note Date/Time of Note DATE: 10/03/16 TIME: 19:55 Assessment/Plan Lines/Catheters IV Catheter Type (from Nrs): Saline Lock Coker in Place (from Nrsg): Yes Assessment/Plan Chief Complaint/Hosp Course IMPRESSION 1. Congestive heart failure. 2. Aortic stenosis. CTA:: Possible small focal dissection or small thrombus within the distal aortic arch. MRA: No thoracic aortic aneurysm or evidence of aortic dissection is identified. Thoracic aortic atherosclerotic plaque is present. RECOMMENDATIONS: We will continue treatment for stated CHF. We will discuss with the referring physicians. Problems: Subjective 24 Hr Interval Summary Constitutional: improved Pain Control: mild Exam/Review of Systems Vital Signs Vitals Vital Signs Date Time Temp Pulse Resp B/P Pulse Ox O2 Delivery O2 Flow Rate FiO2 10/03/16 16:26 142 10/03/16 15:50 97.7 20 95/42 97 10/03/16 08:00 Nasal Cannula 3.0 Intake and Output 10/02/16 10/02/16 10/03/16 15:00 23:00 07:00 Intake Total 310 ml Output Total 300 ml Balance 10 ml Exam ENMT: mucosa pink and moist, nl external ears & nose, nl lips & teeth, nl nasal mucosa & septum Neck: non-tender, supple Respiratory: clear to auscultation, normal air movement Cardiovascular: nl pulses, regular rate and rhythm Results Result Diagram: 10/03/16 0609 10/03/16 0600 MALEWINDY GONZALES MD Oct 03, 2016 19:58
[2016-10-04] VITALS (11 sets, daily range): BP systolic 96–140; BP diastolic 47–85; PULSE 60–132; RESP 16–20
[2016-10-04] MEDS: NITROGLYCERIN 2% 1 GM OINT PKT TD SCH ×2 (06:10)
[2016-10-04 06:32] LABS: BASOPHILS % 0.5 % (0.0-2.0); EOSINOPHILS # 0.3 10^3/ul (0.0-0.5); EOSINOPHILS % 4.5 % (0.0-7.0); HEMATOCRIT 25.6 % (37.0-47.0); HEMOGLOBIN 8.7 g/dl (12.0-16.0); LYMPHOCYTES # 1.9 10^3/ul (0.8-2.9); LYMPHOCYTES % 29.1 % (15.0-51.0); MEAN CORPUSCULAR HEMOGLOBIN 37.9 pg (29.0-33.0); MEAN CORPUSCULAR HGB CONC 34.1 g/dl (32.0-37.0); MEAN CORPUSCULAR VOLUME 111.3 fl (82.0-101.0); MEAN PLATELET VOLUME 8.2 fl (7.4-10.4); MONOCYTE # 0.5 10^3/ul (0.3-0.9); MONOCYTES % 7.6 % (0.0-11.0); NEUTROPHIL # 3.9 10^3/ul (1.6-7.5); NEUTROPHILS % 58.3 % (39.0-77.0); PLATELET COUNT 237 10^3/UL (140-440); RED CELL DISTRIBUTION WIDTH 21.5 % (11.5-14.5); UNCORRECTED WBC 6.6 10^3/ul (4.8-10.8); WHITE BLOOD COUNT 6.6 10^3/ul (4.8-10.8)
[2016-10-04 06:38] LABS: CONDITION 1; LH ANALYZER COMMENTS 1; SUSPECT 1
[2016-10-04 06:47] LABS: CREATININE 1.49 mg/dl (0.44-1.00)
[2016-10-04 06:49] LABS: CALCIUM 8.6 mg/dl (8.4-10.2)
[2016-10-04 07:12] LABS: THYROID STIMULATING HORMONE 3.84 MIU/L (0.465-4.680)
[2016-10-04] MEDS: OLANZAPINE 5 MG TAB PO SCH ×2 (09:01→21:37)
[2016-10-04] MEDS: FAMOTIDINE 20 MG TAB PO SCH (09:01)
[2016-10-04] MEDS: MEMANTINE 5 MG TAB PO SCH ×2 (09:02→21:37)
[2016-10-04] MEDS: FUROSEMIDE 20 MG INJ IV SCH (09:02)
[2016-10-04] MEDS: ASPIRIN (EC) 81 MG TAB PO SCH (09:02)
[2016-10-04] MEDS: METOPROLOL 25 MG TAB PO SCH ×2 (09:02→21:38)
--- NOTE | 2016-10-04 10:51 | CONS ---
Date/Time of Note Date/Time of Note DATE: 10/04/16 TIME: 10:44 Assessment/Plan Assessment/Plan Chief Complaint/Hosp Course IMPRESSION: 1. Congestive heart failure exacerbation, systolic acute-EF 40-45%/mod-sev by echo this admit-improved volume status 2. Positive troponin, assess significance in the setting of renal failure and tachyarrhythmia, possible demand event. Last stress here negative in 2010.lexiscan. Downtrended enzymes. Refused lexiscan today offered 3. Wide complex tachycardia, likely could be consistent with SVT with baseline bundle branch block and given rate, most consistent with probable paroxysmal atrial flutter.-had again overnight 4. Hypertension-a couple of low readings but tolerating all medications 5. Dyslipidemia. 6. Shortness of breath secondary to #1.-improved 7. Renal failure. 8. Hypernatremia-mildly elevated. 9. Anemia. Recc: -Tele -serial ecg's -trend cardiac enzymes -Continue BB/hydralazine in lieu of ACEI given renal failure -D/C NTP and start low dose oral nitrates -Continue asa -Continue PO amio at D/C in attempt to maintain SR as PAFL may have been etiology of demand cardiac event/nstemi -Will continue to hold on plavix at this time given anemia -Consider transfusion of PRBC's -Gentle lasix diuresis but will change to PO -Follow volume status closely -MS improving -Family refused lexiscan today offered Problems: Consultation Date/Type/Reason Admit Date/Time Oct 01, 2016 at 03:18 Initial Consult Date 10/02/2016 Type of Consultation: Cardiology Reason for Consultation Nstemi/cmy Referring Provider: MARLENE BOWEN M.D. Exam/Review of Systems Vital Signs Vitals Vital Signs Date Time Temp Pulse Resp B/P Pulse Ox O2 Delivery O2 Flow Rate FiO2 10/04/16 08:35 83 10/04/16 07:40 97.7 20 140/85 96 10/03/16 20:00 Nasal Cannula 3.0 Intake and Output 10/03/16 10/03/16 10/04/16 14:59 22:59 06:59 Intake Total 240 ml 720 ml 240 ml Output Total 350 ml 800 ml 200 ml Balance -110 ml -80 ml 40 ml Exam Review of Systems: CONSTITUTIONAL: No fevers, chills. PULMONARY: No sob CARDIOVASCULAR: No chest pain/palpitations GASTROINTESTINAL: No nausea/vomiting. GENITOURINARY: No hematuria/dysuria. MUSCULOSKELETAL: No obvious myagias/arthalgias. PSYCHIATRIC: No documented depression. NEUROLOGIC: lethargic Constitutional: other (sleeping, arousable) Head: normocephalic ENMT: mucosa pink and moist Neck: jvd (8-9 cm water), supple Respiratory: clear to auscultation Cardiovascular: regular rate and rhythm Gastrointestinal: non-tender, soft Musculoskeletal: muscle tone (normal) Extremities: edema (none) Neurological: confused (improved), other (No focal deficits) Results Result Diagram: 10/04/16 0535 10/04/16 0535 Results 24 hrs Laboratory Tests Test 10/04/16 05:35 Anion Gap 18 H Basophils # 0.0 Basophils % 0.5 Blood Morphology Comment Blood Urea Nitrogen 38 H Calcium Level 8.6 Carbon Dioxide Level 29 Chloride Level 106 Creatinine 1.49 H Eosinophils # 0.3 Eosinophils % 4.5 Free Thyroxine 0.93 Glucose Level 106 Hematocrit 25.6 L Hemoglobin 8.7 L Lymphocytes # 1.9 Lymphocytes % 29.1 Mean Corpuscular Hemoglobin 37.9 H Mean Corpuscular Hemoglobin Concent 34.1 Mean Corpuscular Volume 111.3 H Mean Platelet Volume 8.2 Monocytes # 0.5 Monocytes % 7.6 Neutrophils # 3.9 Neutrophils % 58.3 Nucleated Red Blood Cells # 0.0 Nucleated Red Blood Cells % 0.0 Platelet Count 237 Potassium Level 4.0 Red Blood Count 2.30 L Red Cell Distribution Width 21.5 H Sodium Level 149 H Thyroid Stimulating Hormone (TSH) 3.840 White Blood Count 6.6 Medications Medications Current Medications Nitroglycerin (Nitroglycerin 2% Oint) 0.5 inch Q6 TD Last administered on t 06:10; Admin Dose 0.5 INCH; Start 10/01/16 at 12:00 Ondansetron HCl (Zofran Tab) 4 mg Q6H PRN PO NAUSEA AND/OR VOMITING; Start at 12:30 Acetaminophen (Tylenol Tab) 650 mg Q6H PRN PO PAIN LEVEL 1-3 OR FEVER; Start 10/01/16 at 12:30 Docusate Sodium (Colace) 100 mg Q12H PRN PO CONSTIPATION; Start 10/01/16 at 12 :30 Famotidine (Pepcid) 20 mg DAILY PO Last administered on 10/04/16 09:01; Admin Dose 20 MG; Start 10/01/16 at 12:30 Aspirin (Halfprin) 81 mg DAILY PO Last administered on 10/04/16 09:02; Admin Dose 81 MG; Start 10/02/16 at 09:00 Metoprolol Tartrate (Lopressor) 25 mg BID PO Last administered on 10/04/16 09: 02; Admin Dose 25 MG; Start 10/01/16 at 21:00 Metoprolol Tartrate (Lopressor) 5 mg Q4 PRN IV HR>110 Hold SBP<100; Start at 18:30 Nitroglycerin (Nitroglycerin (Sl Tab) 0.4 Mg) 1 tab Q5M PRN SL ANGINA; Start 10/01/16 at 18:30 Lorazepam (Ativan) 0.5 mg Q8H PRN IV AGITATION/ANXIETY Last administered on 10/03 11:48; Admin Dose 0.5 MG; Start 10/01/16 at 23:00 Furosemide (Lasix) 20 mg DAILY IV Last administered on 10/04/16 09:02; Admin Dose 20 MG; Start 10/03/16 at 09:00 Hydralazine HCl (Apresoline) 10 mg Q8 PO Last administered on 10/04/16 07:34; Admin Dose 10 MG; Start 10/02/16 at 14:00 Olanzapine (Zyprexa) 5 mg BID PO Last administered on 10/04/16 09:01; Admin Dose 5 MG; Start 10/02/16 at 21:30 Memantine (Namenda) 5 mg BID PO Last administered on 10/04/16 09:02; Admin Dose 5 MG; Start 10/03/16 at 10:00 PRISCILA THORNTON Oct 04, 2016 10:51
--- NOTE | 2016-10-04 11:29 | RADRPT ---
PROCEDURE: XR Chest. CLINICAL INDICATION: CHF TECHNIQUE: An AP view of the chest was obtained. COMPARISON: No prior exam is available for comparison. FINDINGS: There is prominence of the interstitial markings. No pleural effusion or pneumothorax is seen. Th e cardiomediastinal silhouette is mildly enlarged . Calcifications are seen within the aortic arch. There are post cardiac surgery changes with sternotomy wires. The osseous structures demonstrate se nescent changes. IMPRESSION: 1. Mild prominence of the interstitial markings, may reflect mild underlying interstitial edema or chronic lung changes. There is interval improvement in degree of pulmonary vascular congestion when compared to the prior examination. 2. Mild cardiomegaly and aortic atherosclerosis. RPTAT: HH .Erika Bentley MD, MD Date Time Electronically viewed and signed by .Erika Bentley MD, on 10/04/2016 11:29 .G/
--- NOTE | 2016-10-04 12:45 | PN ---
Date/Time of Note Date/Time of Note DATE: 10/04/16 TIME: 12:39 Assessment/Plan VTE Prophylaxis VTE Prophylaxis Intervention: SCD's Lines/Catheters IV Catheter Type (from Nrsg): Saline Lock Urinary Cath still in place: Yes Reason Cath still needed: pres ulcer contaminated by urine Assessment/Plan Assessment/Plan 1. 85-year-old woman with CHF: She is diuresing well, and I discussed the case in detail with Dr. Mckeon and she will be switched to oral lasix, monitor BUN/ creatinine and d/c home tomorrow with family. Family did not want lexiscan and opted for medical management. They are would like to see Dr. Mckeon as an outpatient for ongoing management of her CHF and CAD. There is mild elevation of the first 2 troponin values, but no acute ischemic changes on EKG. As above, family did not want lexiscan. Medications are being adjusted/titrated per Dr. Mckeon. * CT angiogram did not demonstrate perfusion problem, but there was concern initially about the possibility of a aortic arch dissection. MR angiography did not support this conclusion so far. 2. Hypothyroidism: TSH and free T4 are within normal limits. 3. Hypertension 4. Dementia/Agitation: improved with zyprexa. Subjective 24 Hr Interval Summary Free Text/Dictation More awake. Breathing comfortably, and ambulating well. Exam/Review of Systems Vital Signs Vitals Vital Signs Date Time Temp Pulse Resp B/P Pulse Ox O2 Delivery O2 Flow Rate FiO2 10/04/16 12:18 73 10/04/16 11:49 98.3 20 96/47 96 10/03/16 20:00 Nasal Cannula 3.0 Intake and Output 10/03/16 10/03/16 10/04/16 15:00 23:00 07:00 Intake Total 240 ml 720 ml 240 ml Output Total 350 ml 800 ml 200 ml Balance -110 ml -80 ml 40 ml Exam Constitutional: alert, oriented Psych: no complaints Head: normocephalic Eyes: nl conjunctiva ENMT: nl external ears & nose Neck: supple Respiratory: clear to auscultation Cardiovascular: regular rate and rhythm Gastrointestinal: soft Extremities: normal pulses Results Result Diagram: 10/04/16 0535 10/04/16 0535 Results 24 hrs Laboratory Tests Test 10/04/16 05:35 Anion Gap 18 H Basophils # 0.0 Basophils % 0.5 Blood Morphology Comment Blood Urea Nitrogen 38 H Calcium Level 8.6 Carbon Dioxide Level 29 Chloride Level 106 Creatinine 1.49 H Eosinophils # 0.3 Eosinophils % 4.5 Free Thyroxine 0.93 Glucose Level 106 Hematocrit 25.6 L Hemoglobin 8.7 L Lymphocytes # 1.9 Lymphocytes % 29.1 Mean Corpuscular Hemoglobin 37.9 H Mean Corpuscular Hemoglobin Concent 34.1 Mean Corpuscular Volume 111.3 H Mean Platelet Volume 8.2 Monocytes # 0.5 Monocytes % 7.6 Neutrophils # 3.9 Neutrophils % 58.3 Nucleated Red Blood Cells # 0.0 Nucleated Red Blood Cells % 0.0 Platelet Count 237 Potassium Level 4.0 Red Blood Count 2.30 L Red Cell Distribution Width 21.5 H Sodium Level 149 H Thyroid Stimulating Hormone (TSH) 3.840 White Blood Count 6.6 Medications Medications Current Medications Ondansetron HCl (Zofran Tab) 4 mg Q6H PRN PO NAUSEA AND/OR VOMITING; Start at 12:30 Acetaminophen (Tylenol Tab) 650 mg Q6H PRN PO PAIN LEVEL 1-3 OR FEVER; Start 10/01/16 at 12:30 Docusate Sodium (Colace) 100 mg Q12H PRN PO CONSTIPATION; Start 10/01/16 at 12 :30 Famotidine (Pepcid) 20 mg DAILY PO Last administered on 10/04/16 09:01; Admin Dose 20 MG; Start 10/01/16 at 12:30 Aspirin (Halfprin) 81 mg DAILY PO Last administered on 10/04/16 09:02; Admin Dose 81 MG; Start 10/02/16 at 09:00 Metoprolol Tartrate (Lopressor) 25 mg BID PO Last administered on 10/04/16 09: 02; Admin Dose 25 MG; Start 10/01/16 at 21:00 Metoprolol Tartrate (Lopressor) 5 mg Q4 PRN IV HR>110 Hold SBP<100; Start at 18:30 Nitroglycerin (Nitroglycerin (Sl Tab) 0.4 Mg) 1 tab Q5M PRN SL ANGINA; Start 10/01/16 at 18:30 Lorazepam (Ativan) 0.5 mg Q8H PRN IV AGITATION/ANXIETY Last administered on 10/03 11:48; Admin Dose 0.5 MG; Start 10/01/16 at 23:00 Hydralazine HCl (Apresoline) 10 mg Q8 PO Last administered on 10/04/16 07:34; Admin Dose 10 MG; Start 10/02/16 at 14:00 Olanzapine (Zyprexa) 5 mg BID PO Last administered on 10/04/16 09:01; Admin Dose 5 MG; Start 10/02/16 at 21:30 Memantine (Namenda) 5 mg BID PO Last administered on 10/04/16 09:02; Admin Dose 5 MG; Start 10/03/16 at 10:00 Furosemide (Lasix) 20 mg DAILY PO ; Start 10/05/16 at 09:00 Isosorbide Mononitrate (Imdur) 30 mg DAILY PO ; Start 10/05/16 at 09:00 Amiodarone HCl (Cordarone) 200 mg BID PO ; Start 10/04/16 at 11:00 ALEX REDMAN MD Oct 04, 2016 12:45
[2016-10-04] MEDS: AMIODARONE 200 MG TAB PO SCH ×2 (13:16→21:37)
[2016-10-04] MEDS ORDERED: MUPIROCIN 2% 22 GM OINT TOP SCH (21:00)
[2016-10-05] VITALS (11 sets, daily range): BP systolic 92–116; BP diastolic 40–64; PULSE 60–117; RESP 18–20
[2016-10-05] MEDS: AMIODARONE 200 MG TAB PO SCH ×2 (09:11→21:12)
[2016-10-05] MEDS: MEMANTINE 5 MG TAB PO SCH ×2 (09:12→21:11)
[2016-10-05] MEDS: FAMOTIDINE 20 MG TAB PO SCH (09:12)
[2016-10-05] MEDS: ASPIRIN (EC) 81 MG TAB PO SCH (09:12)
[2016-10-05] MEDS: FUROSEMIDE 20 MG TAB PO SCH (09:12)
[2016-10-05] MEDS: METOPROLOL 25 MG TAB PO SCH ×2 (09:12→21:00)
[2016-10-05] MEDS: OLANZAPINE 5 MG TAB PO SCH ×2 (09:13→21:12)
[2016-10-05] MEDS: ISOSORBIDE MONONITRATE(SR)30 MG TAB PO SCH (09:13)
[2016-10-05 09:29] LABS: POTASSIUM 3.7 mmol/L (3.5-5.1)
[2016-10-05 09:31] LABS: CREATININE 1.64 mg/dl (0.44-1.00)
--- NOTE | 2016-10-05 10:36 | CONS ---
Date/Time of Note Date/Time of Note DATE: 10/05/16 TIME: 10:31 Assessment/Plan Assessment/Plan Additional Assessment/Plan 1. Congestive heart failure exacerbation, systolic acute-EF 40-45%/mod-sev by echo this admit-improved volume status - will follow 2. Positive troponin, assess significance in the setting of renal failure and tachyarrhythmia, possible demand event. Last stress here negative in 2010. Lexiscan. Downtrended enzymes. Refused lexiscan today offered 3. Wide complex tachycardia, likely could be consistent with SVT with baseline bundle branch block and given rate, most consistent with probable paroxysmal atrial flutter - in sinus now. 4. Hypertension-a couple of low readings but tolerating all medications 5. Dyslipidemia. 6. Shortness of breath secondary to #1-improved, better now. 7. Renal failure- Cr increased - ? consider D/C akua 8. Hypernatremia-mildly elevated. 9. Anemia. Consultation Date/Type/Reason Admit Date/Time Oct 01, 2016 at 03:18 Initial Consult Date Type of Consultation: Cardiology Referring Provider: MARLENE BOWEN M.D. 24 HR Interval Summary Free Text/Dictation Pt feels better now - no CP - Cr increased - will monitor - avoid nephrotoxic meds - consider d/c John [place] ROS: No fever, no chills, no nausea, no vomiting, no diarrhea/constipation No recent weight changes No chest pain, no PND, no orthopnea No dizziness, blurred vision No thirst, no heat or cold intolerance (better today) Exam/Review of Systems Vital Signs Vitals Vital Signs Date Time Temp Pulse Resp B/P Pulse Ox O2 Delivery O2 Flow Rate FiO2 10/05/16 08:30 74 10/05/16 07:55 97.5 20 116/64 98 10/04/16 20:15 Nasal Cannula 2.0 Intake and Output 10/04/16 10/04/16 10/05/16 15:00 23:00 07:00 Intake Total 250 ml Output Total 200 ml Balance 50 ml Exam General: WN/WD/NAD, AOx 2-3 Bengali HEENT: Unicetric/atraumatic/EOMI (does not follow commands) NECK: JVD elevated, no thyromegaly Lymph: no lymphadenopathy HEART: regular with no S3, II/ systolic murmur at apex and 3/6 at bases LUNGS: Coarse sounds ABD: soft, NT, ND, +BS : Intact Neuro: non focal SKIN: chronic changes EXT: trace edema Results Result Diagram: 10/04/16 0535 10/05/16 0842 Results 24 hrs Laboratory Tests Test 10/05/16 08:42 Anion Gap 19 H Blood Urea Nitrogen 42 H Calcium Level 9.0 Carbon Dioxide Level 29 Chloride Level 104 Creatinine 1.64 H Glucose Level 156 Potassium Level 3.7 Sodium Level 148 H Medications Medications Current Medications Ondansetron HCl (Zofran Tab) 4 mg Q6H PRN PO NAUSEA AND/OR VOMITING; Start at 12:30 Acetaminophen (Tylenol Tab) 650 mg Q6H PRN PO PAIN LEVEL 1-3 OR FEVER; Start 10/01/16 at 12:30 Docusate Sodium (Colace) 100 mg Q12H PRN PO CONSTIPATION; Start 10/01/16 at 12 :30 Famotidine (Pepcid) 20 mg DAILY PO Last administered on 10/05/16 09:12; Admin Dose 20 MG; Start 10/01/16 at 12:30 Aspirin (Halfprin) 81 mg DAILY PO Last administered on 10/05/16 09:12; Admin Dose 81 MG; Start 10/02/16 at 09:00 Metoprolol Tartrate (Lopressor) 25 mg BID PO Last administered on 10/05/16 09: 12; Admin Dose 25 MG; Start 10/01/16 at 21:00 Metoprolol Tartrate (Lopressor) 5 mg Q4 PRN IV HR>110 Hold SBP<100; Start at 18:30 Nitroglycerin (Nitroglycerin (Sl Tab) 0.4 Mg) 1 tab Q5M PRN SL ANGINA; Start 10/01/16 at 18:30 Lorazepam (Ativan) 0.5 mg Q8H PRN IV AGITATION/ANXIETY Last administered on 10/03 11:48; Admin Dose 0.5 MG; Start 10/01/16 at 23:00 Hydralazine HCl (Apresoline) 10 mg Q8 PO Last administered on 10/04/16 07:34; Admin Dose 10 MG; Start 10/02/16 at 14:00 Olanzapine (Zyprexa) 5 mg BID PO Last administered on 10/05/16 09:13; Admin Dose 5 MG; Start 10/02/16 at 21:30 Memantine (Namenda) 5 mg BID PO Last administered on 10/05/16 09:12; Admin Dose 5 MG; Start 10/03/16 at 10:00 Furosemide (Lasix) 20 mg DAILY PO Last administered on 10/05/16 09:12; Admin Dose 20 MG; Start 10/05/16 at 09:00 Isosorbide Mononitrate (Imdur) 30 mg DAILY PO Last administered on 10/05/16 09: 13; Admin Dose 30 MG; Start 10/05/16 at 09:00 Amiodarone HCl (Cordarone) 200 mg BID PO Last administered on 10/05/16 09:11; Admin Dose 200 MG; Start 10/04/16 at 11:00 HERMANN WILLSON MD Oct 05, 2016 10:35
--- NOTE | 2016-10-05 15:01 | PN ---
Date/Time of Note Date/Time of Note DATE: 10/05/16 TIME: 14:27 Assessment/Plan VTE Prophylaxis VTE Prophylaxis Intervention: SCD's Lines/Catheters IV Catheter Type (from Nrs): Peripheral IV Urinary Cath still in place: No Assessment/Plan Assessment/Plan 85-year-old woman with: 1. 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 Diuresed well and now on RA Due to rising creat level, Lasix decreased to 20 mg po daily and monitoring renal function another day Appreciate Cardiology recs and patient will be following up with Dr. Mckeon as an outpatient for ongoing management of her CHF and CAD. 2. Mild elevation of troponins, resolved No acute ischemic changes on EKG. Continue medical management. CTA and MRA negative. 3. Paroxysmal Atrial flutter, likely per Cardiology. Continue Amio and Bblock 4. ESTELA with likely CKD III, has been on diuretics so likely prerenal azotemia. Creat 1.33 on admission Lasix decreased to 20 mg po daily and will recheck renal function in AM Hypernatremia improving. 5. Anemia, acute on chronic: S/p 1 unit pRBC on admit, Hb stable since transfusion with Hb 8.7. Recheck cbc in AM 6. Hypothyroidism: TFTs wnl, continue Synthroid 7. Hypertension: continue current regimen 8. Dementia/Agitation: improved with Zyprexa. MS stable currently with Family at bedside, continue Namenda Prophylaxis: Pepcid for GI ppx and scds for DVT ppx Disposition: if renal function same or improved in AM will discharge home by tomorrow AM Subjective 24 Hr Interval Summary Free Text/Dictation Patient on RA and doing well Renal function declined a little more Na better Exam/Review of Systems Vital Signs Vitals Vital Signs Date Time Temp Pulse Resp B/P Pulse Ox O2 Delivery O2 Flow Rate FiO2 10/05/16 12:34 72 10/05/16 11:57 97.7 20 92/43 94 10/04/16 20:15 Nasal Cannula 2.0 Intake and Output 10/04/16 10/04/16 10/05/16 15:00 23:00 07:00 Intake Total 250 ml Output Total 200 ml Balance 50 ml Exam Constitutional: alert, frail, oriented (x2 at least ), other (belarusian speaking ) Respiratory: clear to auscultation, normal air movement Cardiovascular: nl pulses, regular rate and rhythm Gastrointestinal: non-tender, soft Musculoskeletal: nl extremities to inspection Extremities: normal pulses, other (no edema, clubbing or cyanosis ) Neurological: CARPET RENOVATOR II-XII intact, nl mental status, nl speech, other (baseline strength ) Results Result Diagram: 10/04/16 0535 10/05/16 0842 Results 24 hrs Laboratory Tests Test 10/05/16 08:42 Anion Gap 19 H Blood Urea Nitrogen 42 H Calcium Level 9.0 Carbon Dioxide Level 29 Chloride Level 104 Creatinine 1.64 H Glucose Level 156 Potassium Level 3.7 Sodium Level 148 H Medications Medications Current Medications Ondansetron HCl (Zofran Tab) 4 mg Q6H PRN PO NAUSEA AND/OR VOMITING; Start at 12:30 Acetaminophen (Tylenol Tab) 650 mg Q6H PRN PO PAIN LEVEL 1-3 OR FEVER; Start 10/01/16 at 12:30 Docusate Sodium (Colace) 100 mg Q12H PRN PO CONSTIPATION; Start 10/01/16 at 12 :30 Famotidine (Pepcid) 20 mg DAILY PO Last administered on 10/05/16 09:12; Admin Dose 20 MG; Start 10/01/16 at 12:30 Aspirin (Halfprin) 81 mg DAILY PO Last administered on 10/05/16 09:12; Admin Dose 81 MG; Start 10/02/16 at 09:00 Metoprolol Tartrate (Lopressor) 25 mg BID PO Last administered on 10/05/16 09: 12; Admin Dose 25 MG; Start 10/01/16 at 21:00 Metoprolol Tartrate (Lopressor) 5 mg Q4 PRN IV HR>110 Hold SBP<100; Start at 18:30 Nitroglycerin (Nitroglycerin (Sl Tab) 0.4 Mg) 1 tab Q5M PRN SL ANGINA; Start 10/01/16 at 18:30 Lorazepam (Ativan) 0.5 mg Q8H PRN IV AGITATION/ANXIETY Last administered on 10/03 11:48; Admin Dose 0.5 MG; Start 10/01/16 at 23:00 Hydralazine HCl (Apresoline) 10 mg Q8 PO Last administered on 10/04/16 07:34; Admin Dose 10 MG; Start 10/02/16 at 14:00 Olanzapine (Zyprexa) 5 mg BID PO Last administered on 10/05/16 09:13; Admin Dose 5 MG; Start 10/02/16 at 21:30 Memantine (Namenda) 5 mg BID PO Last administered on 10/05/16 09:12; Admin Dose 5 MG; Start 10/03/16 at 10:00 Furosemide (Lasix) 20 mg DAILY PO Last administered on 10/05/16 09:12; Admin Dose 20 MG; Start 10/05/16 at 09:00 Isosorbide Mononitrate (Imdur) 30 mg DAILY PO Last administered on 10/05/16 09: 13; Admin Dose 30 MG; Start 10/05/16 at 09:00 Amiodarone HCl (Cordarone) 200 mg BID PO Last administered on 10/05/16 09:11; Admin Dose 200 MG; Start 10/04/16 at 11:00 RADHA ORTA Oct 05, 2016 14:56
--- NOTE | 2016-10-05 16:03 | PN ---
Date/Time of Note Date/Time of Note DATE: 10/05/16 TIME: 16:02 Assessment/Plan VTE Prophylaxis VTE Prophylaxis Intervention: other Lines/Catheters IV Catheter Type (from Nrs): Central line still needed: No Urinary Cath still in place: No Assessment/Plan Chief Complaint/Hosp Course IMPRESSION 1. Congestive heart failure. 2. Aortic stenosis. CTA:: Possible small focal dissection or small thrombus within the distal aortic arch. MRA: No thoracic aortic aneurysm or evidence of aortic dissection is identified. Thoracic aortic atherosclerotic plaque is present. RECOMMENDATIONS: We will continue treatment for stated CHF. We will discuss with the referring physicians. Problems: Subjective 24 Hr Interval Summary Gastrointestinal: no complaints Genitourinary: no complaints Musculoskeletal: no complaints Exam/Review of Systems Vital Signs Vitals Vital Signs Date Time Temp Pulse Resp B/P Pulse Ox O2 Delivery O2 Flow Rate FiO2 10/05/16 15:49 98.4 69 20 97/40 98 10/04/16 20:15 Nasal Cannula 2.0 Intake and Output 10/04/16 10/04/16 10/05/16 15:00 23:00 07:00 Intake Total 250 ml Output Total 200 ml Balance 50 ml Results Result Diagram: 10/04/16 0535 10/05/16 0842 Results 24 hrs Laboratory Tests Test 10/05/16 08:42 Anion Gap 19 H Blood Urea Nitrogen 42 H Calcium Level 9.0 Carbon Dioxide Level 29 Chloride Level 104 Creatinine 1.64 H Glucose Level 156 Potassium Level 3.7 Sodium Level 148 H Medications Medications Current Medications Ondansetron HCl (Zofran Tab) 4 mg Q6H PRN PO NAUSEA AND/OR VOMITING; Start at 12:30 Acetaminophen (Tylenol Tab) 650 mg Q6H PRN PO PAIN LEVEL 1-3 OR FEVER; Start 10/01/16 at 12:30 Docusate Sodium (Colace) 100 mg Q12H PRN PO CONSTIPATION; Start 10/01/16 at 12 :30 Famotidine (Pepcid) 20 mg DAILY PO Last administered on 10/05/16 09:12; Admin Dose 20 MG; Start 10/01/16 at 12:30 Aspirin (Halfprin) 81 mg DAILY PO Last administered on 10/05/16 09:12; Admin Dose 81 MG; Start 10/02/16 at 09:00 Metoprolol Tartrate (Lopressor) 25 mg BID PO Last administered on 10/05/16 09: 12; Admin Dose 25 MG; Start 10/01/16 at 21:00 Metoprolol Tartrate (Lopressor) 5 mg Q4 PRN IV HR>110 Hold SBP<100; Start at 18:30 Nitroglycerin (Nitroglycerin (Sl Tab) 0.4 Mg) 1 tab Q5M PRN SL ANGINA; Start 10/01/16 at 18:30 Lorazepam (Ativan) 0.5 mg Q8H PRN IV AGITATION/ANXIETY Last administered on 10/03 11:48; Admin Dose 0.5 MG; Start 10/01/16 at 23:00 Hydralazine HCl (Apresoline) 10 mg Q8 PO Last administered on 10/04/16 07:34; Admin Dose 10 MG; Start 10/02/16 at 14:00 Olanzapine (Zyprexa) 5 mg BID PO Last administered on 10/05/16 09:13; Admin Dose 5 MG; Start 10/02/16 at 21:30 Memantine (Namenda) 5 mg BID PO Last administered on 10/05/16 09:12; Admin Dose 5 MG; Start 10/03/16 at 10:00 Furosemide (Lasix) 20 mg DAILY PO Last administered on 10/05/16 09:12; Admin Dose 20 MG; Start 10/05/16 at 09:00 Isosorbide Mononitrate (Imdur) 30 mg DAILY PO Last administered on 10/05/16 09: 13; Admin Dose 30 MG; Start 10/05/16 at 09:00 Amiodarone HCl (Cordarone) 200 mg BID PO Last administered on 10/05/16 09:11; Admin Dose 200 MG; Start 10/04/16 at 11:00 WINDY MEDEIROS MD Oct 05, 2016 16:02
[2016-10-06] VITALS (12 sets, daily range): BP systolic 96–138; BP diastolic 37–62; PULSE 68–100; RESP 16–19
[2016-10-06 06:30] LABS: BASOPHIL # 0.1 10^3/ul (0.0-0.1); BASOPHILS % 1.4 % (0.0-2.0); EOSINOPHILS # 0.4 10^3/ul (0.0-0.5); EOSINOPHILS % 4.9 % (0.0-7.0); HEMATOCRIT 23.6 % (37.0-47.0); HEMOGLOBIN 8.1 g/dl (12.0-16.0); LYMPHOCYTES # 2.4 10^3/ul (0.8-2.9); LYMPHOCYTES % 33.3 % (15.0-51.0); MEAN CORPUSCULAR HEMOGLOBIN 38.6 pg (29.0-33.0); MEAN CORPUSCULAR HGB CONC 34.5 g/dl (32.0-37.0); MEAN CORPUSCULAR VOLUME 112.1 fl (82.0-101.0); MEAN PLATELET VOLUME 8.3 fl (7.4-10.4); MONOCYTE # 0.6 10^3/ul (0.3-0.9); NEUTROPHIL # 3.7 10^3/ul (1.6-7.5); NEUTROPHILS % 52.4 % (39.0-77.0); PLATELET COUNT 250 10^3/UL (140-440); RED BLOOD COUNT 2.11 10^6/ul (4.20-5.40); RED CELL DISTRIBUTION WIDTH 21.6 % (11.5-14.5); UNCORRECTED WBC 7.1 10^3/ul (4.8-10.8); WHITE BLOOD COUNT 7.1 10^3/ul (4.8-10.8)
[2016-10-06 06:42] LABS: CALCIUM 8.8 mg/dl (8.4-10.2); CREATININE 1.88 mg/dl (0.44-1.00)
[2016-10-06 06:43] LABS: MAGNESIUM 2.2 mg/dl (1.7-2.5)
[2016-10-06 06:45] LABS: CONDITION 1; LH ANALYZER COMMENTS 1
[2016-10-06] MEDS: ASPIRIN (EC) 81 MG TAB PO SCH (08:29)
[2016-10-06] MEDS: AMIODARONE 200 MG TAB PO SCH ×2 (08:29→21:47)
[2016-10-06] MEDS: FUROSEMIDE 20 MG TAB PO SCH (08:30)
[2016-10-06] MEDS: FAMOTIDINE 20 MG TAB PO SCH (08:30)
[2016-10-06] MEDS: ISOSORBIDE MONONITRATE(SR)30 MG TAB PO SCH (08:30)
[2016-10-06] MEDS: OLANZAPINE 5 MG TAB PO SCH ×2 (08:30→21:45)
[2016-10-06] MEDS: MEMANTINE 5 MG TAB PO SCH ×2 (08:31→21:45)
[2016-10-06] MEDS: METOPROLOL 25 MG TAB PO SCH ×2 (08:31→21:00)
[2016-10-06] MEDS ORDERED: SOD CHLORIDE 0.9% 250 ML IV* ONE (10:48)
--- NOTE | 2016-10-06 12:14 | CONS ---
Date/Time of Note Date/Time of Note DATE: 10/06/16 TIME: 12:08 Assessment/Plan Assessment/Plan Chief Complaint/Hosp Course IMPRESSION: 1. Congestive heart failure exacerbation, systolic acute-EF 40-45%/mod-sev by echo this admit-improved volume status 2. Positive troponin, assess significance in the setting of renal failure and tachyarrhythmia, possible demand event. Last stress here negative in 2010.lexiscan. Downtrended enzymes. Refused lexiscan today offered 3. Wide complex tachycardia, likely could be consistent with SVT with baseline bundle branch block and given rate, most consistent with probable paroxysmal atrial flutter.-had again overnight 4. Hypertension-a couple of low readings but tolerating all medications 5. Dyslipidemia. 6. Shortness of breath secondary to #1.-improved 7. Renal failure. 8. Hypernatremia-mildly elevated. 9. Anemia. Recc: -Tele -serial ecg's -trend cardiac enzymes -Continue BB/hydralazine in lieu of ACEI given renal failure and follow BP closely -Oral nitrates -Continue asa -Continue PO amio at D/C in attempt to maintain SR as PAFL may have been etiology of demand cardiac event/nstemi -Will continue to hold on plavix at this time given anemia -Consider transfusion of PRBC's -Hold lasix and transfuse PRBC's and follow-up volume status -Follow volume status closely -MS improving -Family refused lexiscan which was offered Problems: Consultation Date/Type/Reason Admit Date/Time Oct 01, 2016 at 03:18 Initial Consult Date 10/02/2016 Type of Consultation: Cardiology Reason for Consultation CHF Referring Provider: MARLENE BOWEN M.D. Exam/Review of Systems Vital Signs Vitals Vital Signs Date Time Temp Pulse Resp B/P Pulse Ox O2 Delivery O2 Flow Rate FiO2 10/06/16 11:49 98.1 72 17 112/54 99 10/04/16 20:15 Nasal Cannula 2.0 Intake and Output 10/05/16 10/05/16 10/06/16 15:00 23:00 07:00 Intake Total 500 ml 240 ml Output Total 300 ml Balance 200 ml 240 ml Exam Review of Systems: CONSTITUTIONAL: No fevers, chills. PULMONARY: No sob CARDIOVASCULAR: No chest pain/palpitations GASTROINTESTINAL: No nausea/vomiting. GENITOURINARY: No hematuria/dysuria. MUSCULOSKELETAL: No myagias/arthalgias. PSYCHIATRIC: The patient denies depression. NEUROLOGIC: No weakness Constitutional: alert Psych: no complaints Head: normocephalic ENMT: mucosa pink and moist Neck: jvd, supple Respiratory: diminished breath sounds (at bases/B) Cardiovascular: regular rate and rhythm Gastrointestinal: non-tender, soft Musculoskeletal: muscle tone (normal) Extremities: edema (trrace/B) Neurological: other (No focal deficits) Results Result Diagram: 10/06/1654410/06/16544 Results 24 hrs Laboratory Tests Test 10/06/16 05:45 Anion Gap 17 H Basophils # 0.1 Basophils % 1.4 Blood Morphology Comment Blood Urea Nitrogen 46 H Calcium Level 8.8 Carbon Dioxide Level 29 Chloride Level 106 Creatinine 1.88 H Eosinophils # 0.4 Eosinophils % 4.9 Glucose Level 99 # Hematocrit 23.6 L Hemoglobin 8.1 L Lymphocytes # 2.4 Lymphocytes % 33.3 Magnesium Level 2.2 Mean Corpuscular Hemoglobin 38.6 H Mean Corpuscular Hemoglobin Concent 34.5 Mean Corpuscular Volume 112.1 H Mean Platelet Volume 8.3 Monocytes # 0.6 Monocytes % 8.0 Neutrophils # 3.7 Neutrophils % 52.4 Nucleated Red Blood Cells # 0.0 Nucleated Red Blood Cells % 0.0 Platelet Count 250 Potassium Level 4.0 Red Blood Count 2.11 L Red Cell Distribution Width 21.6 H Sodium Level 148 H White Blood Count 7.1 Medications Medications Current Medications Ondansetron HCl (Zofran Tab) 4 mg Q6H PRN PO NAUSEA AND/OR VOMITING; Start at 12:30 Acetaminophen (Tylenol Tab) 650 mg Q6H PRN PO PAIN LEVEL 1-3 OR FEVER; Start 10/01/16 at 12:30 Docusate Sodium (Colace) 100 mg Q12H PRN PO CONSTIPATION Last administered on 06:02; Admin Dose 100 MG; Start 10/01/16 at 12:30 Famotidine (Pepcid) 20 mg DAILY PO Last administered on 10/06/16 08:30; Admin Dose 20 MG; Start 10/01/16 at 12:30 Aspirin (Halfprin) 81 mg DAILY PO Last administered on 10/06/16 08:29; Admin Dose 81 MG; Start 10/02/16 at 09:00 Metoprolol Tartrate (Lopressor) 25 mg BID PO Last administered on 10/06/16 08: 31; Admin Dose 25 MG; Start 10/01/16 at 21:00 Metoprolol Tartrate (Lopressor) 5 mg Q4 PRN IV HR>110 Hold SBP<100; Start at 18:30 Nitroglycerin (Nitroglycerin (Sl Tab) 0.4 Mg) 1 tab Q5M PRN SL ANGINA; Start 10/01/16 at 18:30 Lorazepam (Ativan) 0.5 mg Q8H PRN IV AGITATION/ANXIETY Last administered on 10/03 11:48; Admin Dose 0.5 MG; Start 10/01/16 at 23:00 Hydralazine HCl (Apresoline) 10 mg Q8 PO Last administered on 10/06/16 06:04; Admin Dose 10 MG; Start 10/02/16 at 14:00 Olanzapine (Zyprexa) 5 mg BID PO Last administered on 10/06/16 08:30; Admin Dose 5 MG; Start 10/02/16 at 21:30 Memantine (Namenda) 5 mg BID PO Last administered on 10/06/16 08:31; Admin Dose 5 MG; Start 10/03/16 at 10:00 Isosorbide Mononitrate (Imdur) 30 mg DAILY PO Last administered on 10/06/16 08: 30; Admin Dose 30 MG; Start 10/05/16 at 09:00 Amiodarone HCl (Cordarone) 200 mg BID PO Last administered on 10/06/16 08:29; Admin Dose 200 MG; Start 10/04/16 at 11:00 PRISCILA THORNTON Oct 06, 2016 12:14
--- NOTE | 2016-10-06 13:32 | PN ---
Date/Time of Note Date/Time of Note DATE: 10/06/16 TIME: 13:26 Assessment/Plan VTE Prophylaxis VTE Prophylaxis Intervention: SCD's Lines/Catheters IV [facility] Type [facility]from [facility] Saline Lock Urinary Cath still in place: No Assessment/Plan Assessment/Plan 85-year-old woman with: 1. 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 No aggressive intervention per Family Diuresed well and now on RA Due to rising creat level, d/c Lasix today (patient did get 20 mg today) and monitoring renal function another day Appreciate Cardiology recs and patient will be following up with Dr. Mckeon as an outpatient for ongoing management of her CHF and CAD. 2. Mild elevation of troponins, resolved No acute ischemic changes on EKG. Continue medical management. Appreciate recommendations from Dr Mckeon CTA and MRA negative. 3. Paroxysmal Atrial flutter, likely per Cardiology. Continue Amio and Bblock 4. ESTELA with likely CKD III, has been on diuretics so likely prerenal azotemia. Creat 1.33 on admission d/c Lasix and will recheck renal function in AM Hypernatremia improving. 5. Anemia, acute on chronic: S/p 1 unit pRBC on admit, Hb at 8.1 today and given the fact that needs volume, will give 1 units pRBC and recheck cbc in AM 6. Hypothyroidism: TFTs wnl, continue Synthroid 7. Hypertension: continue current regimen 8. Dementia/Agitation: improved with Zyprexa. MS stable currently with Family at bedside, continue Namenda Prophylaxis: Pepcid for GI ppx and scds for DVT ppx Disposition: Transfuse 1 unit pRBC today and if renal function same or improved in AM will discharge home by tomorrow AM Subjective 24 Hr Interval Summary Free Text/Dictation Patient remains stable but creat up to 1.88 On RA and hb 8.1 today Exam/Review of Systems Vital Signs Vitals Vital Signs Date Time Temp Pulse Resp B/P Pulse Ox O2 Delivery O2 Flow Rate FiO2 10/06/16 12:37 75 10/06/16 11:49 98.1 17 112/54 99 10/04/16 20:15 Nasal Cannula 2.0 Intake and Output 10/05/16 10/05/16 10/06/16 15:00 23:00 07:00 Intake Total 500 ml 240 ml Output Total 300 ml Balance 200 ml 240 ml Exam Constitutional: alert, frail, oriented, other (Polish speaking) Respiratory: clear to auscultation Cardiovascular: irregular rhythm (a fib/a flutter) Gastrointestinal: non-tender, soft Musculoskeletal: nl extremities to inspection Extremities: normal pulses, other (no edema, clubbing or cyanosis ) Neurological: DRY HOUSE OPERATOR II-XII intact, nl mental status, nl speech, nl strength (at baseline ) Results Result Diagram: 10/06/1654410/06/16544 Results 24 hrs Laboratory Tests Test 10/06/16 05:45 Anion Gap 17 H Basophils # 0.1 Basophils % 1.4 Blood Morphology Comment Blood Urea Nitrogen 46 H Calcium Level 8.8 Carbon Dioxide Level 29 Chloride Level 106 Creatinine 1.88 H Eosinophils # 0.4 Eosinophils % 4.9 Glucose Level 99 # Hematocrit 23.6 L Hemoglobin 8.1 L Lymphocytes # 2.4 Lymphocytes % 33.3 Magnesium Level 2.2 Mean Corpuscular Hemoglobin 38.6 H Mean Corpuscular Hemoglobin Concent 34.5 Mean Corpuscular Volume 112.1 H Mean Platelet Volume 8.3 Monocytes # 0.6 Monocytes % 8.0 Neutrophils # 3.7 Neutrophils % 52.4 Nucleated Red Blood Cells # 0.0 Nucleated Red Blood Cells % 0.0 Platelet Count 250 Potassium Level 4.0 Red Blood Count 2.11 L Red Cell Distribution Width 21.6 H Sodium Level 148 H White Blood Count 7.1 Medications Medications Current Medications Ondansetron HCl (Zofran Tab) 4 mg Q6H PRN PO NAUSEA AND/OR VOMITING; Start at 12:30 Acetaminophen (Tylenol Tab) 650 mg Q6H PRN PO PAIN LEVEL 1-3 OR FEVER; Start 10/01/16 at 12:30 Docusate Sodium (Colace) 100 mg Q12H PRN PO CONSTIPATION Last administered on 06:02; Admin Dose 100 MG; Start 10/01/16 at 12:30 Famotidine (Pepcid) 20 mg DAILY PO Last administered on 10/06/16 08:30; Admin Dose 20 MG; Start 10/01/16 at 12:30 Aspirin (Halfprin) 81 mg DAILY PO Last administered on 10/06/16 08:29; Admin Dose 81 MG; Start 10/02/16 at 09:00 Metoprolol Tartrate (Lopressor) 25 mg BID PO Last administered on 10/06/16 08: 31; Admin Dose 25 MG; Start 10/01/16 at 21:00 Metoprolol Tartrate (Lopressor) 5 mg Q4 PRN IV HR>110 Hold SBP<100; Start at 18:30 Nitroglycerin (Nitroglycerin (Sl Tab) 0.4 Mg) 1 tab Q5M PRN SL ANGINA; Start 10/01/16 at 18:30 Lorazepam (Ativan) 0.5 mg Q8H PRN IV AGITATION/ANXIETY Last administered on 10/03 11:48; Admin Dose 0.5 MG; Start 10/01/16 at 23:00 Hydralazine HCl (Apresoline) 10 mg Q8 PO Last administered on 10/06/16 06:04; Admin Dose 10 MG; Start 10/02/16 at 14:00 Olanzapine (Zyprexa) 5 mg BID PO Last administered on 10/06/16 08:30; Admin Dose 5 MG; Start 10/02/16 at 21:30 Memantine (Namenda) 5 mg BID PO Last administered on 10/06/16 08:31; Admin Dose 5 MG; Start 10/03/16 at 10:00 Isosorbide Mononitrate (Imdur) 30 mg DAILY PO Last administered on 10/06/16 08: 30; Admin Dose 30 MG; Start 10/05/16 at 09:00 Amiodarone HCl (Cordarone) 200 mg BID PO Last administered on 10/06/16 08:29; Admin Dose 200 MG; Start 10/04/16 at 11:00 RADHA ORTA Oct 06, 2016 13:32
[2016-10-06] MEDS ORDERED: BISACODYL 10 MG SUPP PR PRN (16:30)
[2016-10-06] MEDS ORDERED: MAGNESIUM HYDROXIDE 30ML CUP PO PRN (16:30)
[2016-10-06] MEDS: POLYETHYLENE GLYCOL 17 GM PACKET PO SCH (16:49)
[2016-10-06] MEDS: LORAZEPAM 2 MG INJ IV PRN (18:17)
--- NOTE | 2016-10-06 20:12 | PN ---
Date/Time of Note Date/Time of Note DATE: 10/06/16 TIME: 20:11 Assessment/Plan Lines/Catheters IV Catheter Type (from Nrs): Saline Lock Coker in Place (from Nrsg): No Assessment/Plan Chief Complaint/Hosp Course IMPRESSION 1. Congestive heart failure. 2. Aortic stenosis. CTA:: Possible small focal dissection or small thrombus within the distal aortic arch. MRA: No thoracic aortic aneurysm or evidence of aortic dissection is identified. Thoracic aortic atherosclerotic plaque is present. RECOMMENDATIONS: We will continue treatment for stated CHF. We will discuss with the referring physicians. Problems: Subjective 24 Hr Interval Summary Constitutional: improved Pain Control: mild Exam/Review of Systems Vital Signs Vitals Vital Signs Date Time Temp Pulse Resp B/P Pulse Ox O2 Delivery O2 Flow Rate FiO2 10/06/16 20:01 97.9 74 18 124/56 100 10/04/16 20:15 Nasal Cannula 2.0 Intake and Output 10/05/16 10/05/16 10/06/16 15:00 23:00 07:00 Intake Total 500 ml 240 ml Output Total 300 ml Balance 200 ml 240 ml Exam ENMT: mucosa pink and moist, nl external ears & nose, nl lips & teeth, nl nasal mucosa & septum Neck: non-tender, supple Respiratory: clear to auscultation, normal air movement Cardiovascular: nl pulses, regular rate and rhythm Results Result Diagram: 10/06/16 0545 10/06/16 0545 WINDY MEDEIROS MD Oct 06, 2016 20:12
[2016-10-06] MEDS: DOCUSATE SODIUM 100 MG CAP PO SCH (21:45)
[2016-10-07] VITALS (10 sets, daily range): BP systolic 108–131; BP diastolic 53–62; PULSE 69–85; RESP 18–20
[2016-10-07] MEDS: LORAZEPAM 2 MG INJ IV PRN (02:40)
[2016-10-07 07:29] LABS: BASOPHILS % 0.7 % (0.0-2.0); EOSINOPHILS # 0.3 10^3/ul (0.0-0.5); EOSINOPHILS % 4.2 % (0.0-7.0); HEMOGLOBIN 9.2 g/dl (12.0-16.0); LYMPHOCYTES # 1.8 10^3/ul (0.8-2.9); LYMPHOCYTES % 23.7 % (15.0-51.0); MEAN CORPUSCULAR HEMOGLOBIN 35.7 pg (29.0-33.0); MEAN CORPUSCULAR HGB CONC 33.9 g/dl (32.0-37.0); MEAN CORPUSCULAR VOLUME 105.1 fl (82.0-101.0); MEAN PLATELET VOLUME 8.2 fl (7.4-10.4); MONOCYTE # 0.5 10^3/ul (0.3-0.9); NEUTROPHIL # 4.8 10^3/ul (1.6-7.5); NEUTROPHILS % 64.4 % (39.0-77.0); PLATELET COUNT 246 10^3/UL (140-440); RED BLOOD COUNT 2.57 10^6/ul (4.20-5.40); RED CELL DISTRIBUTION WIDTH 29.1 % (11.5-14.5); UNCORRECTED WBC 7.5 10^3/ul (4.8-10.8); WHITE BLOOD COUNT 7.5 10^3/ul (4.8-10.8)
[2016-10-07 07:35] LABS: SUSPECT 1
[2016-10-07 07:36] LABS: CONDITION 1; LH ANALYZER COMMENTS 1
[2016-10-07 07:53] LABS: POTASSIUM 4.3 mmol/L (3.5-5.1)
[2016-10-07 07:55] LABS: CREATININE 1.42 mg/dl (0.44-1.00)
[2016-10-07 07:56] LABS: CALCIUM 9.1 mg/dl (8.4-10.2)
[2016-10-07 08:08] LABS: MAGNESIUM 2.1 mg/dl (1.7-2.5); PHOSPHORUS 3.9 mg/dl (2.5-4.9)
[2016-10-07] MEDS: DOCUSATE SODIUM 100 MG CAP PO SCH (08:59)
[2016-10-07] MEDS: MEMANTINE 5 MG TAB PO SCH (08:59)
[2016-10-07] MEDS: FAMOTIDINE 20 MG TAB PO SCH (08:59)
[2016-10-07] MEDS: ASPIRIN (EC) 81 MG TAB PO SCH (08:59)
[2016-10-07] MEDS: OLANZAPINE 5 MG TAB PO SCH (08:59)
[2016-10-07] MEDS: POLYETHYLENE GLYCOL 17 GM PACKET PO SCH (08:59)
[2016-10-07] MEDS: AMIODARONE 200 MG TAB PO SCH (09:00)
[2016-10-07] MEDS: ISOSORBIDE MONONITRATE(SR)30 MG TAB PO SCH (09:00)
[2016-10-07] MEDS: METOPROLOL 25 MG TAB PO SCH (09:00)
--- NOTE | 2016-10-07 12:07 | CONS ---
Date/Time of Note Date/Time of Note DATE: 10/07/16 TIME: 12:03 Assessment/Plan Assessment/Plan Chief Complaint/Hosp Course IMPRESSION: 1. Congestive heart failure exacerbation, systolic acute-EF 40-45%/mod-sev by echo this admit-improved volume status 2. Positive troponin, assess significance in the setting of renal failure and tachyarrhythmia, possible demand event. Last stress here negative in 2010.lexiscan. Downtrended enzymes. Refused lexiscan today offered 3. Wide complex tachycardia, likely could be consistent with SVT with baseline bundle branch block and given rate, most consistent with probable paroxysmal atrial flutter.-had again overnight 4. Hypertension-a couple of low readings but tolerating all medications 5. Dyslipidemia. 6. Shortness of breath secondary to #1.-improved 7. Renal failure. 8. Hypernatremia-mildly elevated. 9. Anemia. Recc: -Tele -serial ecg's -Continue BB/hydralazine in lieu of ACEI given renal failure and follow BP closely -Oral nitrates -Continue asa -Continue PO amio at D/C in attempt to maintain SR as PAFL may have been etiology of demand cardiac event/nstemi -Consider transfusion of PRBC's -Follow volume status closely -MS and creatnine improving -Family refused lexiscan which was offered -D/C planning and outpatient f/u Problems: Consultation Date/Type/Reason Admit Date/Time Oct 01, 2016 at 03:18 Initial Consult Date 10/02/2016 Type of Consultation: Cardiology Reason for Consultation nstemi Referring Provider: MARLENE BOWEN M.D. Exam/Review of Systems Vital Signs Vitals Vital Signs Date Time Temp Pulse Resp B/P Pulse Ox O2 Delivery O2 Flow Rate FiO2 10/07/16 11:34 97.6 68 20 108/53 94 10/04/16 20:15 Nasal Cannula 2.0 Intake and Output 10/06/16 10/06/16 10/07/16 15:00 23:00 07:00 Intake Total 1550 ml 480 ml Output Total 300 ml 300 ml Balance 1250 ml 180 ml Exam Review of Systems: CONSTITUTIONAL: No fevers, chills. PULMONARY: No sob CARDIOVASCULAR: No chest pain/palpitations GASTROINTESTINAL: No nausea/vomiting. GENITOURINARY: No hematuria/dysuria. MUSCULOSKELETAL: No myagias/arthalgias. PSYCHIATRIC: The patient denies depression. NEUROLOGIC: Lethargic Constitutional: other (sleeping) Psych: no complaints Head: normocephalic ENMT: mucosa pink and moist Neck: jvd (9 cm water), supple Respiratory: clear to auscultation Cardiovascular: regular rate and rhythm Gastrointestinal: non-tender, soft Musculoskeletal: muscle tone (normal) Extremities: edema (none) Neurological: other (No focal deficits) Results Result Diagram: 10/07/16 0650 10/07/16 0650 Results 24 hrs Laboratory Tests Test 10/07/16 06:50 Anion Gap 18 H Basophils # 0.0 Basophils % 0.7 Blood Morphology Comment Blood Urea Nitrogen 41 H Calcium Level 9.1 Carbon Dioxide Level 28 Chloride Level 106 Creatinine 1.42 H Eosinophils # 0.3 Eosinophils % 4.2 Glucose Level 104 Hematocrit 27.0 L Hemoglobin 9.2 L Lymphocytes # 1.8 Lymphocytes % 23.7 Magnesium Level 2.1 Mean Corpuscular Hemoglobin 35.7 H Mean Corpuscular Hemoglobin Concent 33.9 Mean Corpuscular Volume 105.1 H Mean Platelet Volume 8.2 Monocytes # 0.5 Monocytes % 7.0 Neutrophils # 4.8 Neutrophils % 64.4 Nucleated Red Blood Cells # 0.0 Nucleated Red Blood Cells % 0.0 Phosphorus Level 3.9 Platelet Count 246 Potassium Level 4.3 Red Blood Count 2.57 #L Red Cell Distribution Width 29.1 #H Sodium Level 148 H White Blood Count 7.5 Medications Medications Current Medications Ondansetron HCl (Zofran Tab) 4 mg Q6H PRN PO NAUSEA AND/OR VOMITING; Start at 12:30 Acetaminophen (Tylenol Tab) 650 mg Q6H PRN PO PAIN LEVEL 1-3 OR FEVER; Start 10/01/16 at 12:30 Famotidine (Pepcid) 20 mg DAILY PO Last administered on 10/07/16 08:59; Admin Dose 20 MG; Start 10/01/16 at 12:30 Aspirin (Halfprin) 81 mg DAILY PO Last administered on 10/07/16 08:59; Admin Dose 81 MG; Start 10/02/16 at 09:00 Metoprolol Tartrate (Lopressor) 25 mg BID PO Last administered on 10/07/16 09: 00; Admin Dose 25 MG; Start 10/01/16 at 21:00 Metoprolol Tartrate (Lopressor) 5 mg Q4 PRN IV HR>110 Hold SBP<100; Start at 18:30 Nitroglycerin (Nitroglycerin (Sl Tab) 0.4 Mg) 1 tab Q5M PRN SL ANGINA; Start 10/01/16 at 18:30 Lorazepam (Ativan) 0.5 mg Q8H PRN IV AGITATION/ANXIETY Last administered on 10/07 02:40; Admin Dose 0.5 MG; Start 10/01/16 at 23:00 Hydralazine HCl (Apresoline) 10 mg Q8 PO Last administered on 10/07/16 06:21; Admin Dose 10 MG; Start 10/02/16 at 14:00 Olanzapine (Zyprexa) 5 mg BID PO Last administered on 10/07/16 08:59; Admin Dose 5 MG; Start 10/02/16 at 21:30 Memantine (Namenda) 5 mg BID PO Last administered on 10/07/16 08:59; Admin Dose 5 MG; Start 10/03/16 at 10:00 Isosorbide Mononitrate (Imdur) 30 mg DAILY PO Last administered on 10/07/16 09: 00; Admin Dose 30 MG; Start 10/05/16 at 09:00 Amiodarone HCl (Cordarone) 200 mg BID PO Last administered on 10/07/16 09:00; Admin Dose 200 MG; Start 10/04/16 at 11:00 Docusate Sodium (Colace) 100 mg BID PO Last administered on 10/07/16 08:59; Admin Dose 100 MG; Start 10/06/16 at 21:00 Magnesium Hydroxide (Milk Of Mag) 30 ml DAILY PRN PO CONSTIPATION; Start at 16:30 Polyethylene Glycol (Miralax) 17 gm DAILY PO Last administered on 10/07/16 08: 59; Admin Dose 17 GM; Start 10/06/16 at 16:30 Bisacodyl (Dulcolax Supp) 10 mg DAILY PRN [place] CONSTIPATION; Start 10/06/16 at 16: 30 PRISCILA THORNTON Oct 07, 2016 12:07
--- NOTE | 2016-10-07 12:33 | PN ---
Date/Time of Note Date/Time of Note DATE: 10/07/16 TIME: 12:12 Assessment/Plan VTE Prophylaxis VTE Prophylaxis Intervention: SCD's Lines/Catheters IV [facility] Saline Lock Urinary Cath still in place: No Assessment/Plan Assessment/Plan 85-year-old woman with: 1. 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 No aggressive intervention per Family Diuresed well and now on RA Creat much better post 1 unit pRBC yesterday, will discharge home today on Lasix 20 mg daily (Home dosing). Appreciate Cardiology recs and patient will be following up with Dr. Mckeon as an outpatient for ongoing management of her CHF and CAD. 2. Mild elevation of troponins, resolved No acute ischemic changes on EKG. Continue medical management. Appreciate recommendations from Dr Mckeon CTA and MRA negative. 3. Paroxysmal Atrial flutter, likely per Cardiology. Continue Amio and Bblock 4. ESTELA with likely CKD III, has been on diuretics so likely prerenal azotemia. Creat back down to 1.42 d/c on home dosing Lasix and will recheck renal function in AM Hypernatremia improving. 5. Anemia, acute on chronic: S/p 1 unit pRBC on admit, Hb up to 9.2 and stable. 6. Hypothyroidism: TFTs wnl, continue Synthroid 7. Hypertension: continue current regimen 8. Dementia/Agitation: improved with Zyprexa. MS stable currently with Family at bedside, continue Namenda. Hold off Ativan. Prophylaxis: Pepcid for GI ppx and scds for DVT ppx Disposition: Discharge home today with outpatient follow up with Dr Mckeon. Subjective 24 Hr Interval Summary Free Text/Dictation Patient doing well today Sleeping but easily arousable Renal function much improved Hb at 9.2 D/c home today Exam/Review of Systems Vital Signs Vitals Vital Signs Date Time Temp Pulse Resp B/P Pulse Ox O2 Delivery O2 Flow Rate FiO2 10/07/16 11:34 97.6 68 20 108/53 94 10/04/16 20:15 Nasal Cannula 2.0 Intake and Output 10/06/16 10/06/16 10/07/16 15:00 23:00 07:00 Intake Total 1550 ml 480 ml Output Total 300 ml 300 ml Balance 1250 ml 180 ml Exam Constitutional: alert, frail, oriented Respiratory: clear to auscultation, normal air movement Cardiovascular: nl pulses, regular rate and rhythm Gastrointestinal: non-tender, soft Musculoskeletal: nl extremities to inspection Extremities: normal pulses, other (no edema, clubbing or cyanosis ) Neurological: [employer] II-XII intact, nl mental status, nl speech, nl strength Results Result Diagram: 10/07/16 0650 10/07/16 0650 Results 24 hrs Laboratory Tests Test 10/07/16 06:50 Anion Gap 18 H Basophils # 0.0 Basophils % 0.7 Blood Morphology Comment Blood Urea Nitrogen 41 H Calcium Level 9.1 Carbon Dioxide Level 28 Chloride Level 106 Creatinine 1.42 H Eosinophils # 0.3 Eosinophils % 4.2 Glucose Level 104 Hematocrit 27.0 L Hemoglobin 9.2 L Lymphocytes # 1.8 Lymphocytes % 23.7 Magnesium Level 2.1 Mean Corpuscular Hemoglobin 35.7 H Mean Corpuscular Hemoglobin Concent 33.9 Mean Corpuscular Volume 105.1 H Mean Platelet Volume 8.2 Monocytes # 0.5 Monocytes % 7.0 Neutrophils # 4.8 Neutrophils % 64.4 Nucleated Red Blood Cells # 0.0 Nucleated Red Blood Cells % 0.0 Phosphorus Level 3.9 Platelet Count 246 Potassium Level 4.3 Red Blood Count 2.57 #L Red Cell Distribution Width 29.1 #H Sodium Level 148 H White Blood Count 7.5 Medications Medications Current Medications Ondansetron HCl (Zofran Tab) 4 mg Q6H PRN PO NAUSEA AND/OR VOMITING; Start at 12:30 Acetaminophen (Tylenol Tab) 650 mg Q6H PRN PO PAIN LEVEL 1-3 OR FEVER; Start 10/01/16 at 12:30 Famotidine (Pepcid) 20 mg DAILY PO Last administered on 10/07/16 08:59; Admin Dose 20 MG; Start 10/01/16 at 12:30 Aspirin (Halfprin) 81 mg DAILY PO Last administered on 10/07/16 08:59; Admin Dose 81 MG; Start 10/02/16 at 09:00 Metoprolol Tartrate (Lopressor) 25 mg BID PO Last administered on 10/07/16 09: 00; Admin Dose 25 MG; Start 10/01/16 at 21:00 Metoprolol Tartrate (Lopressor) 5 mg Q4 PRN IV HR>110 Hold SBP<100; Start at 18:30 Nitroglycerin (Nitroglycerin (Sl Tab) 0.4 Mg) 1 tab Q5M PRN SL ANGINA; Start 10/01/16 at 18:30 Lorazepam (Ativan) 0.5 mg Q8H PRN IV AGITATION/ANXIETY Last administered on 10/07 02:40; Admin Dose 0.5 MG; Start 10/01/16 at 23:00 Hydralazine HCl (Apresoline) 10 mg Q8 PO Last administered on 10/07/16 06:21; Admin Dose 10 MG; Start 10/02/16 at 14:00 Olanzapine (Zyprexa) 5 mg BID PO Last administered on 10/07/16 08:59; Admin Dose 5 MG; Start 10/02/16 at 21:30 Memantine (Namenda) 5 mg BID PO Last administered on 10/07/16 08:59; Admin Dose 5 MG; Start 10/03/16 at 10:00 Isosorbide Mononitrate (Imdur) 30 mg DAILY PO Last administered on 10/07/16 09: 00; Admin Dose 30 MG; Start 10/05/16 at 09:00 Amiodarone HCl (Cordarone) 200 mg BID PO Last administered on 10/07/16 09:00; Admin Dose 200 MG; Start 10/04/16 at 11:00 Docusate Sodium (Colace) 100 mg BID PO Last administered on 10/07/16 08:59; Admin Dose 100 MG; Start 10/06/16 at 21:00 Magnesium Hydroxide (Milk Of Mag) 30 ml DAILY PRN PO CONSTIPATION; Start at 16:30 Polyethylene Glycol (Miralax) 17 gm DAILY PO Last administered on 10/07/16 08: 59; Admin Dose 17 GM; Start 10/06/16 at 16:30 Bisacodyl (Dulcolax Supp) 10 mg DAILY PRN [place] CONSTIPATION; Start 10/06/16 at 16: 30 RADHA ORTA Oct 07, 2016 12:30
--- NOTE | 2016-10-07 12:37 | PDOCDIS ---
Discharge Instructions CONDITION Patient Condition: Good HOME CARE INSTRUCTIONS: Special Diet: low fat/low chol ACTIVITY: Activity Restrictions: No Restrictions Slowly Increase Activity FOLLOW UP/APPOINTMENTS Appointments Follow up with PCP within 1 week Follow up with Dr Mckeon in 2 weeks RADHA ORTA Oct 07, 2016 12:37
[2016-10-07] MEDS ORDERED: ASPI-664 PO (12:44)
[2016-10-07] MEDS ORDERED: AMIO200T2 PO (12:44)
[2016-10-07] MEDS ORDERED: METO-448 PO (12:44)
[2016-10-07] MEDS ORDERED: ISOS30TA5 PO (12:44)
[2016-10-07] MEDS ORDERED: HYDR-3670 PO (12:44)
--- NOTE | 2016-10-07 13:07 | PN ---
Date/Time of Note Date/Time of Note DATE: 10/07/16 TIME: 13:07 Assessment/Plan Lines/Catheters IV Catheter Type (from Nrs): Saline Lock Coker in Place (from Nrs): No Assessment/Plan Chief Complaint/Hosp Course IMPRESSION 1. Congestive heart failure. 2. Aortic stenosis. CTA:: Possible small focal dissection or small thrombus within the distal aortic arch. MRA: No thoracic aortic aneurysm or evidence of aortic dissection is identified. Thoracic aortic atherosclerotic plaque is present. RECOMMENDATIONS: We will continue treatment for stated CHF. We will discuss with the referring physicians. Problems: Subjective 24 Hr Interval Summary Constitutional: improved Pain Control: mild Exam/Review of Systems Vital Signs Vitals Vital Signs Date Time Temp Pulse Resp B/P Pulse Ox O2 Delivery O2 Flow Rate FiO2 10/07/16 12:26 69 10/07/16 11:34 97.6 20 108/53 94 10/04/16 20:15 Nasal Cannula 2.0 Intake and Output 10/06/16 10/06/16 10/07/16 15:00 23:00 07:00 Intake Total 1550 ml 480 ml Output Total 300 ml 300 ml Balance 1250 ml 180 ml Exam ENMT: mucosa pink and moist, nl external ears & nose, nl lips & teeth, nl nasal mucosa & septum Neck: non-tender, supple Respiratory: clear to auscultation, normal air movement Cardiovascular: nl pulses, regular rate and rhythm Results Result Diagram: 10/07/16 0650 10/07/16 0650 WINDY MEDEIROS MD Oct 07, 2016 13:07
[2016-10-07] MEDS ORDERED: FURO20TA3 PO (16:29)
--- NOTE | 2016-10-07 17:34 | DS ---
DATE OF ADMISSION: 10/01/2016 DATE OF DISCHARGE: 10/07/2016 ADMITTING PHYSICIAN: Forrest Izaguirre MD DISCHARGING PHYSICIAN: Radha Carl MD [employer] CONSULTANT DURING THIS ADMISSION: Prosper Mckeon MD from cardiology, Torin Bliss MD from [facility] othoracic surgery. CHIEF COMPLAINT ON ADMISSION: Cough, orthopnea. BRIEF HISTORY OF PRESENT ILLNESS: This is an 85-year-old female with history of coronary artery dis ease, status post coronary artery bypass surgery 20 years ago, congestive heart failure, chronic ane francisco javier, who presented to the emergency department with orthopnea, shortness of breath, signs of volume overload, along with chest pressure and diagnosed anemia on laboratory data. The patient was admitt ed to a telemetry bed with cardiology evaluation. 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 The patient subsequently had an MR angiography that did not find any signs of dis section. She was seen by Dr. Bliss who also reevaluated imaging. At this point, there are no s igns of dissection, therefore no surgical intervention, just medical management. The patient was se en by Dr. Mckeon who has seen her before regarding her congestive heart failure. She has been plac ed on diuretics. She diuresed very well. She did receive 1 unit of packed red blood cells on admis ramon. Two days prior to discharge, her creatinine started rising; therefore her diuretics where dec reased and subsequently stopped for 1 day. She did receive a second unit of packed red blood cells and her creatinine has now improved, almost back to her baseline. She is at 1.42 with a baseline 1. 3. She is euvolemic. She is doing very well, she will be discharged home today with outpatient [facility] with Dr. Mckeon. Her blood pressure medications have been adjusted and changed. She has bee n placed on aspirin and taken off Plavix. She will be maintained on her iron supplements and she wi ll be discharged on Lasix 20 mg p.o. daily. DISPOSITION: Discharge home. DISCHARGE CONDITION: Stable. DISCHARGE DIET: Cardiac diet. DISCHARGE ACTIVITY: Resume home activity. FOLLOWUP: 1. The patient is to follow up with her primary care physician within 1 to 2 weeks. 2. Follow up with doctor within 2 weeks as an outpatient. DISCHARGE MEDICATIONS: 1. Amiodarone 200 mg p.o. b.i.d. for 1 week, then 200 mg p.o. daily. 2. Aspirin 81 mg daily. 3. Hydralazine 10 mg p.o. q. 8 hours. 4. Isosorbide mononitrate ER 30 mg p.o. daily. 5. Lopressor 25 mg p.o. b.i.d. 6. Lasix 20 mg p.o. daily. 7. Vitamin B12 500 mcg daily. 8. Donepezil 10 mg p.o. daily. 9. Vitamin D 50,000 units weekly. 10. Ferrous sulfate 325 mg p.o. b.i.d. 11. Hydroxyzine 50 mg p.o. 6 hours as needed for itching. 12. Levoxyl 25 mcg q.a.c. 13. Megace 40 mg p.o. daily. 14. Namenda XR 14 mg p.o. q.a.m. 15. Ludivina-Carmelita 1 tab p.o. daily. 16. Zyprexa 5 mg p.o. b.i.d. 17. Simvastatin 80 mg p.o. at bedtime. DISCHARGE DIAGNOSES 1. Congestive heart failure exacerbation with known systolic dysfunction, acute on chronic. 2. Mild elevation of troponin likely from demand, workup negative. 3. Paroxysmal atrial fibrillation. 4. Acute kidney injury on chronic kidney disease stage III at least, back to baseline. 5. Acute on chronic anemia, status post total of 2 units of packed red blood cells. 6. Hypothyroidism. 7. Hypertension. 8. Dementia. Dictated By: RADHA DELGADO/MARILU Conf#: [id number] DID#: [id number]
== END 2016-10-07 17:55 | disposition home or self-care (01) | DRG 292 ==
LOC: E/R 17:08 → TEL 10-01 03:18
PROVIDERS: ADMIT Internal Medicine; ATTEND Internal Medicine
PROC: 30233N1 Transfusion of Nonautologous Red Blood Cells into Peripheral Vein, Percutaneous Approach (ICD-10-PCS; principal; 2016-10-01)
DX: I50.23 Acute on chronic systolic (congestive) heart failure (principal); E87.0 Hyperosmolality and hypernatremia; N17.9 Acute kidney failure, unspecified; I47.1 Supraventricular tachycardia; I35.0 Nonrheumatic aortic (valve) stenosis; I48.0 Paroxysmal atrial fibrillation; I12.9 Hypertensive chronic kidney disease with stage 1 through stage 4 chronic kidney disease, or unspecified chronic kidney disease; N18.3 Chronic kidney disease, stage 3 (moderate); D64.9 Anemia, unspecified; E03.9 Hypothyroidism, unspecified; F03.90 Unspecified dementia, unspecified severity, without behavioral disturbance, psychotic disturbance, mood disturbance, and anxiety; E78.5 Hyperlipidemia, unspecified; R00.0 Tachycardia, unspecified
CPT/HCPCS: 36415; 36430; 71010; 71275; 71555; 75635; 80048; 80061; 82550; 82553; 83735; 83880; 84100; 84439; 84443; 84484; 85025; 85610; 85730; 86850; 86900; 86901; 86920; 93005; 93306; 96374; 96375; 96376; 97001; 97530; J1940; J2060; J7040; P9016; Q9967